=== PATIENT | male | born 1960 | race Hispanic/Latino ===

== ENCOUNTER 2017-12-03 19:23 | Observation (INO) | payer BC ==
[2017-12-03] MEDS ORDERED: NA CHLORIDE 0.9% 1,000 ML ONE (20:20)
[2017-12-03 20:57] LABS: Protime INR 1.08
[2017-12-03 20:58] LABS: Absolute Lymphocytes (CBC) 1.8 K/uL (0.7-4.9); Absolute Monocytes 0.6 K/uL (0.1-1.3); Absolute Neutrophil 5.1 K/uL (1.8-8.0); Basophils % 0.4 % (0-1.3); Hematocrit 44.7 % (39.6-49.0); Lymphocytes % 23.7 % (15.3-44.8); MCH 32.9 pg (27.0-35.0); MCV 93.4 fL (80-100); MPV 9.9 fL (7.6-11.3); Monocytes % 7.2 % (3.3-12.3); RBC Red Blood Cell Count 4.79 M/uL (4.33-5.43)
[2017-12-03 21:14] LABS: ALT/SGPT 41 U/L (12-78); AST/SGOT 26 U/L (15-37); Albumin 3.7 g/dL (3.4-5.0); Alkaline Phosphatase 63 U/L (45-117); BUN Blood Urea Nitrogen 17 mg/dL (7-18); Bicarbonate 27 mmol/L (21-32); Bilirubin Direct 0.1 mg/dL (0-0.2); Bilirubin Total 0.7 mg/dL (0.2-1.0); Glucose Level 122 mg/dL (74-106); Lipase 226 U/L (73-393); Magnesium 2.1 mg/dL (1.8-2.4); NT PRO-BNP 213 pg/mL (<125); Potassium 3.5 mmol/L (3.5-5.1); Sodium Level 141 mmol/L (136-145); Troponin (Emerg Dept Use Only) < 0.02 ng/mL (0.0-0.045)
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
--- NOTE | 2017-12-03 22:16 | RAD REPORT ---
EXAM DESCRIPTION: RAD - Chest Single View - 12/03/2017 8:23 pm CLINICAL HISTORY: Cough and congestion, shortness of breath COMPARISON: August 2013 TECHNIQUE: AP portable chest image was obtained 2015 hours . FINDINGS: Lung volumes are relatively low. No peripheral mass or consolidation. Cardiomegaly is pres ent increased slightly from all ready prominent heart size on comparison study. Vasculature is increa sed slightly. No measurable pleural effusion and no pneumothorax. No acute bony abnormality seen. No acute aortic findings suspected. IMPRESSION: No peripheral mass or consolidation. Cardiomegaly and vascular engorgement are slightly worse than 2014 suggesting mild failure or volume overload.
--- NOTE | 2017-12-03 22:18 | RAD REPORT ---
EXAM DESCRIPTION: - CP - 12/03/2017 9:20 pm CLINICAL HISTORY: Dizziness, syncope COMPARISON: None. TECHNIQUE: Real-time sonographic evaluation of both carotid systems was performed. Moody scale and Do ppler interrogation were performed with waveform tracing bilaterally. FINDINGS: Normal high resistance waveforms are noted in both external carotid arteries. The common c arotid arteries and internal carotid arteries show normal low resistance waveforms. Mild plaquing changes are present in the right carotid bulb. Right-sided velocity values and ratio fa ll within normal range. Elevated left ICA velocity of 110 cm/second obtained with a 1.9 ICA/CCA ratio . Corresponding plaquing changes are not clearly identified. There is some plaquing change present in the bulb and ICA on the left. Antegrade flow seen in both vertebral arteries. Velocity values and ratios were recorded and are retained in the patient's imaging records. IMPRESSION: Elevated velocity and ratio values on the left are present without a definitive correlat e on visual inspection. Left-sided findings are equivocal for hemodynamically significant stenosis. No significant stenosis in the right carotid vasculature.
--- NOTE | 2017-12-03 22:40 | EDPHYS ---
Physician Documentation [facility] Name: Fabian Hamm Jr Age: 57 yrs Sex: Male : 1960 Arrival Date: 12/03/2017 Time: 19:26 Bed 28 Private MD: ED Physician Rashel Johnson HPI: 12/03 20:06 This 57 yrs old Male presents to ER via Ambulatory with complaints of cassia Dizziness. 20:06 The patient presents with dizziness, lightheadedness, feeling off balance. Onset: The cassia symptoms/episode began/occurred 3 day(s) ago. Context: occurred at home. Modifying factors: The symptoms are alleviated by nothing, the symptoms are aggravated by standing up, changing position. Severity of symptoms: At their worst the symptoms were. Historical: - Allergies: 19:48 No Known Allergies; mg2 - Home Meds: 19:48 hydrochlorothiazide 25 mg Oral tab [Active]; lisinopril 20 mg Oral tab [Active]; mg2 ropinirole Oral [Active]; pravastatin 20 mg Oral tab [Active]; - PMHx: 19:48 Hyperlipidemia; Hypertension; restless leg syndrome; mg2 - PSHx: 19:48 None; mg2 - Immunization history:: Flu vaccine is not up to date. - Social history:: Smoking status: Patient/guardian denies using tobacco, Patient uses alcohol, weekly. Patient/guardian denies using street drugs, IV drugs. - Ebola Screening: : No symptoms or risks identified at this time. - Family history:: not pertinent. ROS: 20:07 Constitutional: Negative for fever, chills, and weight loss, Eyes: Negative for injury, cassia pain, redness, and discharge, ENT: Negative for injury, pain, and discharge, Neck: Negative for injury, pain, and swelling, Respiratory: Negative for shortness of breath, cough, wheezing, and pleuritic chest pain, Abdomen/GI: Negative for abdominal pain, nausea, vomiting, diarrhea, and constipation, Back: Negative for injury and pain, : Negative for injury, bleeding, discharge, and swelling, MS/Extremity: Negative for injury and deformity, Skin: Negative for injury, rash, and discoloration, Psych: Negative for depression, anxiety, suicide ideation, homicidal ideation, and hallucinations, Allergy/Immunology: Negative for hives, rash, and allergies, Endocrine: Negative for neck swelling, polydipsia, polyuria, polyphagia, and marked weight changes, Hematologic/Lymphatic: Negative for swollen nodes, abnormal bleeding, and unusual bruising. 20:07 Cardiovascular: Positive for chest pain, with movement, of the right clavicle, anterior aspect of right upper chest and right breast. Exam: 20:07 Constitutional: This is a well developed, well nourished patient who is awake, alert, cassia and in no acute distress. Head/Face: Normocephalic, atraumatic. Eyes: Pupils equal round and reactive to light, extra-ocular motions intact. Lids and lashes normal. Conjunctiva and sclera are non-icteric and not injected. Cornea within normal limits. Periorbital areas with no swelling, redness, or edema. ENT: Nares patent. No nasal discharge, no septal abnormalities noted. Tympanic membranes are normal and external auditory canals are clear. Oropharynx with no redness, swelling, or masses, exudates, or evidence of obstruction, uvula midline. Mucous membranes moist. Neck: Trachea midline, no thyromegaly or masses palpated, and no cervical lymphadenopathy. Supple, full range of motion without nuchal rigidity, or vertebral point tenderness. No Meningismus. Cardiovascular: Regular rate and rhythm with a normal S1 and S2. No gallops, murmurs, or rubs. Normal PMI, no JVD. No pulse deficits. Respiratory: Lungs have equal breath sounds bilaterally, clear to auscultation and percussion. No rales, rhonchi or wheezes noted. No increased work of breathing, no retractions or nasal flaring. Abdomen/GI: Soft, non-tender, with normal bowel sounds. No distension or tympany. No guarding or rebound. No evidence of tenderness throughout. Back: No spinal tenderness. No costovertebral tenderness. Full range of motion. Male : Normal genitalia with no discharge or lesions. Skin: Warm, dry with normal turgor. Normal color with no rashes, no lesions, and no evidence of cellulitis. MS/ Extremity: Pulses equal, no cyanosis. Neurovascular intact. Full, normal range of motion. Neuro: Awake and alert, GCS 15, oriented to person, place, time, and situation. Cranial nerves II-XII grossly intact. Motor strength 5/5 in all extremities. Sensory grossly intact. Cerebellar exam normal. Normal gait. Psych: Awake, alert, with orientation to person, place and time. Behavior, mood, and affect are within normal limits. 20:07 Chest/axilla: Inspection: normal, Palpation: tenderness, that is mild, of the anterior aspect of right upper chest and right breast, Axilla: are normal, no abscess, no cellulitis, no mass, no palpable nodes, no rash. Vital Signs: 19:46 BP 145 / 74; Pulse 66; Resp 18; Temp 98.5(O); Pulse Ox 100% on R/A; Weight 104.33 kg; mg2 Height 5 ft. 1 in. (154.94 cm); Pain 2/10; 22:03 BP 141 / 83; Pulse 59; Resp 18; Pulse Ox 100% on R/A; mg2 22:48 BP 130 / 70; Pulse 57; Resp 18; Pulse Ox 100% on R/A; mg2 23:23 BP 131 / 67; Pulse 52; Resp 18; Pulse Ox 97% on R/A; Pain 2/10; mg2 19:46 Body Mass Index 43.46 (104.33 kg, 154.94 cm) mg2 MDM: 19:54 Patient medically screened. [facility] 20:07 Data reviewed: vital signs, nurses notes, lab test result(s), EKG, radiologic studies, [facility] CT scan, doppler, plain films. 12/03 20:06 Order name: Basic Metabolic Panel; Complete Time: 22:36 [facility] 12/03 20:06 Order name: CBC with Diff; Complete Time: 22:36 [facility] 12/03 20:06 Order name: LFT's; Complete Time: 22:36 [facility] 12/03 20:06 Order name: Magnesium; Complete Time: 22:36 [facility] 12/03 20:06 Order name: NT PRO-BNP; Complete Time: 22:36 [facility] 12/03 20:06 Order name: PT-INR; Complete Time: 22:36 [facility] 12/03 20:06 Order name: Troponin (emerg Dept Use Only); Complete Time: 22:36 [facility] 12/03 20:06 Order name: XRAY Chest (1 view); Complete Time: 22:36 [facility] 12/03 20:06 Order name: Lipase; Complete Time: 22:36 [facility] 12/03 20:06 Order name: CT Traumagram (Head C Spine CAP W Con); Complete Time: 22:36 [facility] 12/03 20:06 Order name: US Carotid Artery Bilateral; Complete Time: 22:36 [facility] 12/03 22:19 Order name: Urine Dipstick--Ancillary (enter results) ms 12/03 22:44 Order name: Echo with Doppler [facility] 12/03 20:06 Order name: EKG; Complete Time: 20:07 [facility] 12/03 20:06 Order name: Cardiac monitoring; Complete Time: 21:38 [facility] 12/03 20:06 Order name: EKG - Nurse/Tech; Complete Time: 21:51 [facility] 12/03 20:06 Order name: IV Saline Lock; Complete Time: 21:38 [facility] 12/03 20:06 Order name: Labs collected and sent; Complete Time: 21:38 [facility] 12/03 20:06 Order name: O2 Per Protocol; Complete Time: 21:38 [facility] 12/03 20:06 Order name: O2 Sat Monitoring; Complete Time: 21:38 [facility] 12/03 20:06 Order name: Urine Dipstick-Ancillary (obtain specimen); Complete Time: 22:18 [facility] 12/03 22:44 Order name: CONS Physician Consult EDNM Administered Medications: 20:29 Drug: NS 0.9% 500 ml Route: IV; Rate: bolus; Site: left wrist; mg2 22:04 Follow up: Response: No adverse reaction; IV Status: Completed infusion mg2 23:46 Follow up: Response: No adverse reaction; IV Status: Completed infusion mg2 20:54 Drug: NS 0.9% 1000 ml Route: IV; Rate: 125 ml/hr; Site: left wrist; mg2 23:46 Follow up: Response: No adverse reaction; IV Status: Completed infusion mg2 22:57 Drug: Aspirin Chewable Tablet 324 mg Route: PO; mg2 23:45 Follow up: Response: No adverse reaction mg2 Disposition: 12/03/17 22:40 Hospitalization ordered by Fred Ramirez for Observation. Preliminary diagnosis are Dizziness and giddiness - left carotid disease, Multiple fractures of ribs, right side - 3rd and 4th. - Bed requested for Telemetry/MedSurg (observation). - Status is Observation. mg2 - Condition is Stable. - Problem is new. - Symptoms have improved. UTI on Admission? No Signatures: Dispatcher [employer] EDNM Liberty Armenta RN RN mw Anderson, Corey, MD MD cha Gardose, Nils, RN RN mg2 Corrections: (The following items were deleted from the chart) 22:40 22:40 Hospitalization Ordered by Fred Ramirez MD for Observation. Preliminary [facility] diagnosis is Dizziness and giddiness; Multiple fractures of ribs, right side - 3rd and 4th. Bed requested for Telemetry/MedSurg (observation). Status is Observation. Condition is Stable. Problem is new. Symptoms have improved. UTI on Admission? No. [facility] :18 22:40 12/03/2017 22:40 Hospitalization Ordered by Fred Ramirez MD for Observation. Preliminary diagnosis is Dizziness and giddiness - left carotid disease; Multiple fractures of ribs, right side - 3rd and 4th. Bed requested for Telemetry/MedSurg (observation). Status is Observation. Condition is Stable. Problem is new. Symptoms have improved. UTI on Admission? No. [facility] 12/04 00:25 12/03 23:18 12/03/2017 22:40 Hospitalization Ordered by Fred Ramirez MD for mg2 Observation. Preliminary diagnosis is Dizziness and giddiness - left carotid disease; Multiple fractures of ribs, right side - 3rd and 4th. Bed requested for Telemetry/MedSurg (observation). Status is Observation. Condition is Stable. Problem is new. Symptoms have improved. UTI on Admission? No. mw
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
[2017-12-03 22:47] LABS: Urine Blood NEGATIVE (NEG); Urine Glucose NEGATIVE (NEG); Urine Protein NEGATIVE (NEG)
[2017-12-03] MEDS ORDERED: ASPIRIN 81 MG CHEWABLE TABLET ONE (22:58)
[2017-12-04] MEDS ORDERED: ONDANSETRON 4 MG/2 ML VIAL IV PRN (00:30)
[2017-12-04] MEDS ORDERED: MECLIZINE HCL 12.5 MG TAB PO PRN (00:30)
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
[2017-12-04] MEDS ORDERED: ROPINIROLE HCL 0.25 MG TAB PO SCH ×2 (01:40→21:00)
[2017-12-04] MEDS: LISINOPRIL 20 MG TAB PO SCH ×2 (01:56→09:00)
[2017-12-04 02:14] VITALS: BMI 43.0
[2017-12-04 05:48] LABS: Absolute Lymphocytes (CBC) 1.9 K/uL (0.7-4.9); Absolute Monocytes 0.5 K/uL (0.1-1.3); Absolute Neutrophil 3.7 K/uL (1.8-8.0); Basophils % 0.4 % (0-1.3); Eosinophils % 5.4 % (0-4.4); Hematocrit 40.8 % (39.6-49.0); Lymphocytes % 28.9 % (15.3-44.8); MCH 33.3 pg (27.0-35.0); MCV 94.2 fL (80-100); MPV 9.4 fL (7.6-11.3); Monocytes % 8.4 % (3.3-12.3); RBC Red Blood Cell Count 4.33 M/uL (4.33-5.43)
[2017-12-04 05:51] LABS: Potassium 3.6 mmol/L (3.5-5.1)
[2017-12-04] MEDS ORDERED: REGADENOSON 0.4 MG/5 ML SYR IV ONE (07:45)
[2017-12-04] MEDS ORDERED: INFLUENZA VACCINE (for 3y+) 0.5 ML DOSE IMVAC ONE (10:00)
--- NOTE | 2017-12-04 10:08 | RAD REPORT ---
EXAM DESCRIPTION: NM - Rest Stress Cardiac Imaging - 12/04/2017 9:47 am CLINICAL HISTORY: Chest pain COMPARISON: None. TECHNIQUE: The patient was administered 10.3 mCi of Tc 99m Sestamibi prior to resting SPECT imaging of the heart. The patient was then administered 32.4 mCi of Tc 99m Sestamibi following exercise or ph armacologic stress. Multiplanar SPECT images were reviewed. FINDINGS: The end diastolic volume is 194 ml, the end systolic volume is 110 ml, and the ejection fr action is 43 %. No stress-induced ischemic changes identifiable. Moderate area of diminished activity along the infer ior wall base to apex could be scarring. This is a common site for diaphragmatic attenuation artifact as well, particularly given the ventricular dilatation. IMPRESSION: No stress-induced ischemic change. Large inferior wall fixed defect from scarring, attenuation artifact or a combination. End-diastolic volume was 194 mL with a 43% EF.
[2017-12-04] MEDS: ENOXAPARIN 40 MG/0.4 ML SQ SCH (10:21)
--- NOTE | 2017-12-04 13:08 | TREADPHA ---
DX: CHEST PAIN Date of Study: 12/04/2017 Ht: 5 2 Wt: 235 lb 3.2 oz Consulting Physician: DR. CARIAS MEDICATIONS: LOVENOX, PRINIVIL, ATIVERT, ZOFRAN, REQUIP HISTORY: 57 YEAR OLD MALE. COMPLAINTS OF CHEST PAIN. MEDICAL HISTORY: HYPERTENSION, HYPERLIPIDEMIA, RESTLESS LEG SYNDROME PHYSICIAL EXAMINATION: RESTING B.P.: 163/90 RESTING H.R.: 50 RESTING EKG: SINUS BRADYCARDIA, RIGHT AXIS DEVIATION. PROTOCOL: LEXISCAN EXERCISE TIME: 3:30 B.P. AT PEAK STRESS: 148/84 IMPRESSION: LEXISCAN INJECTED, CARDIOLITE INJECTED PER PROTOCOL. SEE NUCLEAR MEDICINE REPORT. NO SUPERIOR VENTRICULAR TACHYCARDIA. NO VENTRICULAR TACHYCARDIA. OCCASIONAL PREMATURE VENTRICULAR COMPLEXES THROUGHOUT. DENIED CHEST PAIN ONLY DISCOMFORT.
[2017-12-04] MEDS ORDERED: LORazepam 2 MG/ML VIAL IV ONE (15:07)
--- NOTE | 2017-12-04 15:56 | RAD REPORT ---
EXAM DESCRIPTION: MRI - Brain W/Wo Cont - 12/04/2017 3:47 pm CLINICAL HISTORY: Dizziness COMPARISON: 12/03/[address] TECHNIQUE: Axial, sagittal, and coronal magnetic resonance images of the brain were obtained. 16 cc MultiHance administered intravenously. FINDINGS: Mild to moderate signal is present within periventricular, deep and subcortical white jhony er bilaterally Diffusion-weighted/ADC mapping does not reveal evidence of acute infarction. The ventricles are normal caliber. No abnormal enhancement within the brain is seen. An extra-axial fluid collection is not noted. The sinuses and mastoids are clear. IMPRESSION: Mild to moderate signal is present within periventricular, deep and subcortical white ma tter bilaterally may be secondary to ischemic changes secondary small vessel disease No acute intracranial abnormality is seen
--- NOTE | 2017-12-04 16:24 | PN ---
Date of Progress Note: 12/04/2017 Subjective: The patient seen and examined. Chart reviewed and case discussed with RN. The patient does complain of some dizziness with bending forward, going for a stress test today. Review of Systems: Negative except as above. Medications: List reviewed. Physical Examination: Vital Signs: Temperature 97, heart rate 48, blood pressure 150/88, respirations 16, O2 98% on room air. General: Awake, alert, oriented x3. In mild distress due to pain. Obese, morbidly obese male. CV: S1, S2. Regular rate and rhythm. Peripheral pulses present. No murmurs. Respiratory: Moving air well bilaterally. No wheezing or stridor. Gastrointestinal: Abdomen is soft, nontender, nondistended. Positive bowel sounds. Extremities: No clubbing, cyanosis, or edema. Neuro : Cranial nerves 2 through 12 intact grossly. No focal neurological deficit. Speech is normal. Strength is symmetric bilateral upper and lower extremities. Musculoskeletal: Tenderness to palpation of the right shoulder posterior aspect. Somewhat decreased range of motion due to pain on the right shoulder. Laboratory Data: Sodium 140, potassium 3.6, chloride 106, CO2 28, BUN 17, creatinine 0.9, glucose 149, calcium 8.3. WBC 6.5, H and H 14.4 and 40.8, platelets 145. Assessment And Plan: A 57-year-old male with: 1. Dizziness. The patient does have carotid artery stenosis, which may be etiology. We will check orthostatic vital signs and continue remote cardiac telemetry. 2. Morbid obesity, counseled. 3. Essential hypertension. Continue home medications as appropriate. We will hold beta-liz due to bradycardia. 4. Bradycardia. Hold metoprolol. 5. Left carotid artery disease. Ultrasound shows stenosis. Consider CT angio neck. Neurology has been consulted. We will discuss with Cardiology. 6. Nondisplaced right rib fractures, 3rd and 4th rib. 7. Diffuse fatty liver disease. 8. Cervical spine degenerative changes with foraminal stenosis, C6-7. 9. Gastrointestinal and deep venous thrombosis prophylaxis addressed. /KATE Voice ID: [id number] Report ID: [id number] ADE
[2017-12-04] MEDS ORDERED: METOPROLOL TAR 50 MG TAB PO SCH (21:00)
[2017-12-04] MEDS ORDERED: ATORVASTATIN 10 MG TAB PO SCH (21:00)
[2017-12-04] MEDS ORDERED: HYDRALAZINE HCL 20 MG/ML VIAL IV PRN (21:51)
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
--- NOTE | 2017-12-05 06:04 | CON ---
Date of Consultation: 12/04/2017 Reason For Consultation: Left carotid stenosis. History Of Present Illness: Mr. Hamm is 57, has a history of hypertension, dyslipidemia, restless legs syndrome. He also has a history of hypothyroidism. He came in with dizzy spells, sharp chest pain on the right side of his chest. Carotid Doppler showed no focal stenosis that is obvious, but e levated velocity on the left size. I think this is probably more secondary to tortuosity. The patie nt is not having TIA symptoms. He is not having PND, orthopnea, pedal edema, nausea, vomiting, or pa lpitations. Allergies: NONE. Review of Systems: Negative. Social History: Negative. Family History: Negative. Medications: Medications at home include Synthroid, lisinopril, hydrochlorothiazide, metoprolol, and Pravachol. Physical Examination: Vital Signs: Stable. He was afebrile. HEENT: Negative. Neck: Supple with no bruit, lymphadenopathy, JVD, or thyromegaly. Chest: Clear to auscultation and percussion. Cardiac: Exam revealed a regular rhythm and rate. No murmurs, gallops, or rubs. Abdomen: Benign. Extremities: Revealed no clubbing, cyanosis, or edema. Diagnostic Data: As stated earlier. Also, he has C6-7 spinal stenosis. Impression And Plan: Dizzy spells and balance issues, may have to do with orthostatic hypotension. I doubt that the carotid stenosis is causing his issue. There is only increased velocity but no foca l visual stenosis. The C6-C7 stenosis may have some to do with his symptoms as well. I do not think he needs a carotid angiogram at this point. There is an echocardiogram and a Lexiscan pending to ru le out other cardiac issues. If these are normal, he can go home. He will need to have a carotid Do ppler on a yearly basis to follow up on his carotid stenosis. The blood pressure and dyslipidemia ar e well controlled. NB/MODL Voice ID: [id number] Report ID: [id number]
[2017-12-05] MEDS ORDERED: LEVOTHYROXINE SOD 0.025 MG TAB PO SCH (06:30)
--- NOTE | 2017-12-05 06:54 | EKG ---
Test Date: 2017-12-03 Test Time: 21:46:13 Mortgage Closing Clerk: MG MEASUREMENT RESULTS: Intervals: Rate: 49 [place]: 166 QRSD: 110 QT: 406 QTc: 366 [place]: P: 31 [place]: 166 QRS: 171 T: 0 INTERPRETIVE STATEMENTS: Marked sinus bradycardia Right axis deviation Anterior infarct, age undetermined Abnormal ECG Compared to ECG 02/14/2012 10:41:19 Right-axis deviation now present Myocardial infarct finding now present Electronically Signed On 12-05-17 06:49:37 CDT by Hans Guillory
--- NOTE | 2017-12-05 08:08 | ECHO ---
HEIGHT: 5 ft 2 in WEIGHT: 235 lb 3.2 oz DATE OF STUDY: 12/04/[address]: Rashel Johnson MD 2-DIMENSIONAL: YES M.MODE: YES DOPPLER: YES COLOR FLOW: YES TDS: PORTABLE: DEFINITY: BUBBLE STUDY: DIAGNOSIS: DIZZINESS, CHEST PAIN CARDIAC HISTORY: CATHERIZATION: NO SURGERY: NO PROSTHETIC VALVE: NO PACEMAKER: NO MEASUREMENTS (cm) DIASTOLIC (NORMALS) SYSTOLIC (NORMALS) IVSd 1.2 (0.6-1.2) LA Diam 4.0 (1.9-4.0) LVEF 62% LVIDd 5.8 (3.5-5.7) LVIDs 3.8 (2.0-3.5) %FS 34% LVPWd 1.3 (0.6-1.2) Ao Diam 3.2 (2.0-3.7) 2 DIMENSIONAL ASSESSMENT: RIGHT ATRIUM: NORMAL LEFT ATRIUM: NORMAL RIGHT VENTRICLE: NORMAL LEFT VENTRICLE: NORMAL TRICUSPID VALVE: NORMAL MITRAL VALVE: NORMAL PULMONIC VALVE: NORMAL AORTIC VALVE: NORMAL PERICARDIAL EFFUSION: NONE AORTIC ROOT: NORMAL LEFT VENTRICULAR WALL MOTION: NORMAL DOPPLER/COLOR FLOW: MILD TRICUSPID REGURGITATION. COMMENTS: MILD TRICUSPID REGURGITATION. NORMAL LEFT VENTRICULAR SIZE AND FUNCTION. NO WALL MOTION ABNORMALITY. NO EFFUSION. TECHNOLOGIST: KELLEY CHU
[2017-12-05] MEDS: LISINOPRIL 20 MG TAB PO SCH (09:28)
[2017-12-05] MEDS: ENOXAPARIN 40 MG/0.4 ML SQ SCH (09:31)
[2017-12-05 09:32] VITALS: BP 156/87
[2017-12-05 10:54] VITALS: TEMP 97.4
[2017-12-05 11:29] VITALS: O2SAT 98
--- NOTE | 2017-12-06 03:25 | DS ---
Date of Discharge: 12/05/2017 Consultants: Include Dr. Guillory with Cardiology, Dr. Spicer with Neurology. Procedures: Cardiac stress test on 12/04/2017, negative for any stress-induced ischemia. Admitting Diagnoses: 1.Dizziness. 2.Morbid obesity. 3.Hypertension. Discharge Diagnoses: 1.Dizziness likely due to benign positional vertigo. 2.Morbid obesity, BMI of 43. 3.Essential hypertension. 4.Bradycardia. 5.Left carotid disease. 6.Nondisplaced right rib fractures, third and fourth rib. 7.Diffuse fatty liver disease. 8.Cervical spine degenerative changes C6 through 7. Hospital Course: The patient is a 57-year-old male who came in with dizziness and the patient was fo und to have nondisplaced right third and fourth rib fractures. CT head, cervical, chest, spine, abdo men, and pelvis did not show any acute abnormalities. Carotid ultrasound did show possible left ICA obstruction. The patient was seen by Cardiology and Neurology. The patient had an MRI of the brain done which did not show any acute CVA, was thought to have dizziness secondary to benign positional v ertigo. Mayela maneuver was taught. The patient also had an exercise stress and nuclear stress test which did not show any stress-induced ischemia. The patient will need repeat carotid ultrasound in 6 months to 1 year. Cardiology felt that this was not stenosis, but more was tortuosity. Followup: With primary care physician in 2 to 3 days. Follow up with neurologist, Dr. Spicer in 2 weeks. Follow up with chef saucier, Dr. Guillory in 2 weeks. Return to ER for worsening condition. Recommended to have bariatric surgery for weight loss. Diet: Heart healthy, calorie restricted diet. Activity: As tolerated. Medications: As per medication reconciliation list. Physical Examination: General: Awake, alert, oriented, no acute distress. CV: S1, S2. No murmurs. Respiratory: Moving air well bilaterally. Abdomen: Soft, nontender, nondistended. Positive bowel sounds. Extremities: No clubbing, cyanosis, edema. Neuro: Nonfocal. SA/MODL Voice ID: [id number] Report ID: [id number]
== END 2017-12-05 10:33 | disposition home or self-care (01) ==
LOC: ER 19:23 → ERHOLD 22:41 → 2ND 23:55
PROVIDERS: ADMIT Internal Medicine; ATTEND Internal Medicine
DX: R42 Dizziness and giddiness (principal); S22.41XA Multiple fractures of ribs, right side, initial encounter for closed fracture; V19.3XXA Pedal cyclist (driver) (passenger) injured in unspecified nontraffic accident, initial encounter; Y93.55 Activity, bike riding; Y92.9 Unspecified place or not applicable; E66.01 Morbid (severe) obesity due to excess calories; Z68.41 Body mass index [BMI] 40.0-44.9, adult; I10 Essential (primary) hypertension; R00.1 Bradycardia, unspecified; I77.89 Other specified disorders of arteries and arterioles; Z23 Encounter for immunization; M48.02 Spinal stenosis, cervical region; K76.0 Fatty (change of) liver, not elsewhere classified
CPT/HCPCS: 36415; 70450; 70553; 71045; 71260; 72125; 74177; 78452; 80048; 80076; 81003; 83690; 83735; 83880; 84484; 85025; 85610; 93005; 93017; 93306; 93880; 96360; 96361; 99285; A9500; A9577; G0008; G0378; J0360; J1650; J2785; J7030; Q2035; Q9967

== ENCOUNTER 2020-01-23 14:48 | Emergency (ER) | payer BC, SELFPAY ==
[2020-01-23] MEDS ORDERED: MORPHINE 4 MG/ML SYR ONE (18:01)
[2020-01-23] MEDS ORDERED: KETOROLAC 30 MG/ML INJ ONE (18:02)
[2020-01-23] MEDS ORDERED: DIAZEPAM 10 MG/2 ML INJ SYRINGE ONE (18:02)
--- NOTE | 2020-01-23 18:42 | EDPHYS ---
Physician Documentation [facility] Name: Fabian Hamm Jr Age: 59 yrs Sex: Male : 1960 Arrival Date: 01/23/2020 Time: 14:51 Bed 23 Private MD: ED Physician Josiah Ward HPI: 01/22 17:35 This 59 yrs old Male presents to ER via Wheelchair with complaints of Back cp Pain. 17:35 The patient presents with pain that is acute. The symptoms are located in the low back. cp 17:35 Onset: The symptoms/episode began/occurred 4 day(s) ago. cp 17:35 The pain does not radiate. Associated signs and symptoms: Pertinent negatives: cp abdominal pain, dysuria, fever, incontinence, numbness, tingling, weakness. The problem was sustained pain started after pulling tarp. Severity of symptoms: in the emergency department the symptoms are actually worse, moderately. Historical: - Allergies: 15:37 No Known Allergies; ca1 - PMHx: 15:37 Hyperlipidemia; Hypertension; restless leg syndrome; Diabetes - NIDDM; ca1 - PSHx: 15:37 None; ca1 - Immunization history:: Adult Immunizations up to date, Flu vaccine is not up to date. - Social history:: Smoking status: Patient denies any tobacco usage or history of. ROS: 17:40 Constitutional: Negative for body aches, chills, fever, poor PO intake. cp 17:40 Eyes: Negative for injury, pain, redness, and discharge. cp 17:40 ENT: Negative for ear pain, sore throat, difficulty swallowing, difficulty handling secretions. 17:40 Cardiovascular: Negative for chest pain, palpitations. 17:40 Respiratory: Negative for cough, shortness of breath, wheezing. 17:40 Abdomen/GI: Negative for abdominal pain, nausea, vomiting, and diarrhea, constipation, bowel incontinence. 17:40 Back: Positive for pain at rest, pain with movement, of the lumbar area and left low back. 17:40 : Negative for urinary symptoms, difficulty urinating, bladder incontinence, testicular pain 17:40 Skin: Negative for rash. 17:40 Neuro: Negative for dizziness, numbness, weakness. 17:40 All other systems are negative. Exam: 17:45 Constitutional: The patient appears in no acute distress, alert, awake, non-toxic, well cp developed, well nourished, uncomfortable. 17:45 Head/Face: Normocephalic, atraumatic. cp 17:45 Cardiovascular: Rate: normal. 17:45 Respiratory: the patient does not display signs of respiratory distress, Respirations: normal, no use of accessory muscles, no retractions, labored breathing, is not present. 17:45 Abdomen/GI: Inspection: abdomen appears normal, Bowel sounds: active, all quadrants, Palpation: abdomen is soft and non-tender, in all quadrants. 17:45 Back: pain, that is moderate, of the left low back, ROM is painful, with all movement, Straight leg raises: of both lower extremities does not illicit pain. 17:45 Skin: no rash present. 17:45 Neuro: Motor: moves all fours, strength is normal, Sensation: is normal, Deep tendon reflexes are 2+ (normal) in the right patellar, right Achilles, left patellar and left Achilles. Vital Signs: 15:34 BP 155 / 92; Pulse 68; Resp 16 S; Temp 97.4(TE); Pulse Ox 99% on R/A; Weight 110.22 kg ca1 (R); Height 5 ft. 1 in. (154.94 cm) (R); Pain 9/10; 15:34 Body Mass Index 45.91 (110.22 kg, 154.94 cm) ca1 MDM: 17:30 Patient medically screened. cp 18:05 Differential diagnosis: ruptured disc, Ureterolithiasis sciatica, cauda equina, spinal cp stenosis. 18:40 Data reviewed: vital signs, nurses notes, radiologic studies, plain films. cp 18:40 Test interpretation: by ED physician or midlevel provider: xrays of lumbar spine cp negative for acute findings. Counseling: I had a detailed discussion with the patient and/or guardian regarding: the historical points, exam findings, and any diagnostic results supporting the discharge/admit diagnosis, radiology results, the need for outpatient follow up, a family practitioner, to return to the emergency department if symptoms worsen or persist or if there are any questions or concerns that arise at home. Response to treatment: the patient's symptoms have markedly improved after treatment, and as a result, I will discharge patient. 18:40 ED course: VSS. Pain markedly improved. Will discharge to home for continued monitoring.cp 01/22 17:31 Order name: XRAY Lumbar Spine (3 Views); Complete Time: 19:03 cp 01/22 19:03 Interpretation: Report reviewed. cp Administered Medications: 17:55 Drug: morphine 4 mg Route: IM; Site: left ventrogluteal; 19:02 Follow up: Response: No adverse reaction; Pain is decreased 17:55 Drug: Diazepam 5 mg Route: IM; Site: left ventrogluteal; 19:02 Follow up: Response: No adverse reaction; Pain is decreased 17:55 Drug: TORadol 60 mg Route: IM; Site: left ventrogluteal; 19:02 Follow up: Response: No adverse reaction; Pain is decreased Disposition: 01/23 09:32 Co-signature as Attending Physician, Josiah Ward MD. rn Disposition: 01/23/20 18:41 Discharged to Home. Impression: Low back pain. - Condition is Stable. - Discharge Instructions: Back Pain, Adult, Back Exercises. - Prescriptions for Baclofen 10 mg Oral Tablet - take 1 tablet by ORAL route 3 times per day; 20 tablet. Medrol (Evin) 4 mg Oral Tablets, Dose Pack - take 1 tablet by ORAL route as directed - follow package instructions; 1 packet. Lidoderm 5 % Topical adhesive patch,medicated - apply 1 patch by TRANSDERMAL route once daily; 1 box. - Medication Reconciliation Form, Thank You Letter, Antibiotic Education, Prescription Opioid Use form. - Follow up: Private Physician; When: 1 - 2 days; Reason: Recheck today's complaints. - Problem is new. - Symptoms have improved. Signatures: Dispatcher [employer] EDJosiah Grover MD MD rn Page, Corey, PA PA Marcy Turk RN LANDRY [facility] Martha Patel RN RN Corrections: (The following items were deleted from the chart) 01/22 19:03 18:41 01/23/2020 18:41 Discharged to Home. Impression: Low back pain. Condition is ah Stable. Forms are Medication Reconciliation Form, Thank You Letter, Antibiotic Education, Prescription Opioid Use. Follow up: Private Physician; When: 1 - 2 days; Reason: Recheck today's complaints. Problem is new. Symptoms have improved. cp
--- NOTE | 2020-01-23 18:42 | ER ---
Nurse's Notes [facility] Name: Fabian Hamm Jr Age: 59 yrs Sex: Male : 1960 Arrival Date: 01/23/2020 Time: 14:51 Bed 23 Private MD: Diagnosis: Low back pain Presentation: 01/22 15:34 Chief complaint: Patient states: You pulled a tarp on Friday, the next I can't move ca1 no more and have been hurting since then. Reports Lower back pain across, more on the L side. Coronavirus screen: Client denies travel out of the [place] in the last 14 days. At this time, the client does not indicate any symptoms associated with coronavirus-19. Ebola Screen: Patient negative for fever greater than or equal to 101.5 degrees Fahrenheit, and additional compatible Ebola Virus Disease symptoms Patient denies exposure to infectious person. Patient denies travel to an Ebola-affected area in the 21 days before illness onset. No symptoms or risks identified at this time. Initial Sepsis Screen: Does the patient meet any 2 criteria? No. Patient's initial sepsis screen is negative. Does the patient have a suspected source of infection? No. Patient's initial sepsis screen is negative. Risk Assessment: Do you want to hurt yourself or someone else? Patient reports no desire to harm self or others. Onset of symptoms was January 23, 2020. 15:34 Method Of Arrival: Wheelchair ca1 15:34 Acuity: ELIZABETH 4 ca1 Historical: - Allergies: 15:37 No Known Allergies; ca1 - PMHx: 15:37 Hyperlipidemia; Hypertension; restless leg syndrome; Diabetes - NIDDM; ca1 - PSHx: 15:37 None; ca1 - Immunization history:: Adult Immunizations up to date, Flu vaccine is not up to date. - Social history:: Smoking status: Patient denies any tobacco usage or history of. Screenin:02 Abuse screen: Denies threats or abuse. Nutritional screening: No deficits noted. Tuberculosis screening: No symptoms or risk factors identified. Fall Risk None identified. Assessment: 17:24 Reassessment: Provider in room at this time. 17:35 General: Appears in no apparent distress. Behavior is calm, cooperative, appropriate ah for age. Pain: Complains of pain in lumbar area, low back area, left low back and right low back Pain currently is 8 out of 10 on a pain scale. Quality of pain is described as aching, Pain began 2-3 days ago. Is intermittent, Aggravated by increased activity, repositioning. Neuro: Level of Consciousness is awake, alert, obeys commands, Oriented to person, place, time, situation, Appropriate for age. Cardiovascular: Denies Heart tones S1 S2 present. Respiratory: Airway is patent. GI: Abdomen is. 18:10 Reassessment: Pt to radiology via WC for xrays. Vital Signs: 15:34 BP 155 / 92; Pulse 68; Resp 16 S; Temp 97.4(TE); Pulse Ox 99% on R/A; Weight 110.22 kg ca1 (R); Height 5 ft. 1 in. (154.94 cm) (R); Pain 9/10; 15:34 Body Mass Index 45.91 (110.22 kg, 154.94 cm) ca1 ED Course: 14:51 Patient arrived in ED. ds1 15:37 Triage completed. ca1 15:37 Arm band placed on right wrist. ca1 17:16 Rashel Díaz PA is PHCP. cp 17:16 Josiah Ward MD is Attending Physician. cp 17:23 Martha Patel, RN is Primary Nurse. ah 18:14 XRAY Lumbar Spine (3 Views) In Process Unspecified. EDMS 19:02 Patient has correct armband on for positive identification. Bed in low position. Call light in reach. Side rails up X 1. 19:02 No provider procedures requiring assistance completed. Patient did not have IV access during this emergency room visit. Administered Medications: 17:55 Drug: morphine 4 mg Route: IM; Site: left ventrogluteal; 19:02 Follow up: Response: No adverse reaction; Pain is decreased 17:55 Drug: Diazepam 5 mg Route: IM; Site: left ventrogluteal; 19:02 Follow up: Response: No adverse reaction; Pain is decreased 17:55 Drug: TORadol 60 mg Route: IM; Site: left ventrogluteal; 19:02 Follow up: Response: No adverse reaction; Pain is decreased Outcome: 18:41 Discharge ordered by . cp 19:01 Discharged to home ambulatory. 19:01 Condition: good 19:01 Discharge instructions given to patient, Instructed on discharge instructions, follow up and referral plans. Demonstrated understanding of instructions, follow-up care, medications, Prescriptions given X 4. 19:03 Patient left the ED. Signatures: Dispatcher [employer] EDAZ AdonayVicki ds1 Rashel Díaz PA PA cp Acob, Cheryl, RN RN [facility] Martha Patel RN RN
--- NOTE | 2020-01-23 18:50 | RAD REPORT ---
EXAM DESCRIPTION: RAD - Lumbar Spine 3 Views - 01/23/2020 6:16 pm CLINICAL HISTORY: PAIN Radiculopathy COMPARISON: No comparisons FINDINGS: Vertebral body heights appear maintained. No compression fracture noted. Disc thinning is present with minimal vacuum disc degeneration and small posterior osteophytes at L5-S1. Minimal anter olisthesis also noted at this level. Moderate facet hypertrophy is present at the lower lumbar levels . IMPRESSION: [id number] L5-S1 spondylosis.
[2020-01-27 12:52] VITALS: BP 155/92; TEMP 97.4; O2SAT 99
== END 2020-01-23 19:03 | disposition home or self-care (01) ==
LOC: ER 14:48
DX: M54.5 Low back pain (principal); I10 Essential (primary) hypertension
CPT/HCPCS: 72100; 96372; 99283; J3360

== ENCOUNTER 2020-09-05 00:14 | Inpatient (IN) | payer SELFPAY ==
[2020-09-05] MEDS ORDERED: METHYLPREDNISOLONE 125 MG INJ ONE ×2 (00:46→12:31)
[2020-09-05] MEDS ORDERED: IPRATROPIUM BROM 0.5MG/2.5ML ONE ×3 (00:47→13:55)
[2020-09-05] MEDS ORDERED: ALBUTEROL 2.5 MG/3 ML NEB SOL ONE ×3 (00:47→13:55)
[2020-09-05 01:16] LABS: Absolute Lymphocytes (CBC) 1.4 K/uL (0.7-4.9); Basophils % 0.5 % (0-1.3); Hematocrit 39.6 % (39.6-49.0); Lymphocytes % 24.7 % (15.3-44.8); MPV 9.2 fL (7.6-11.3); Protime INR 1.05; RBC Red Blood Cell Count 4.26 M/uL (4.33-5.43)
[2020-09-05] MEDS ORDERED: FUROSEMIDE 40 MG/4 ML VIAL ONE (01:37)
[2020-09-05 02:14] LABS: ALT/SGPT 51 U/L (12-78); AST/SGOT 35 U/L (15-37); Albumin 3.9 g/dL (3.4-5.0); Alkaline Phosphatase 66 U/L (45-117); BUN Blood Urea Nitrogen 11 mg/dL (7-18); Bicarbonate 27 mmol/L (21-32); Bilirubin Direct 0.2 mg/dL (0-0.2); Bilirubin Total 0.7 mg/dL (0.2-1.0); Glucose Level 101 mg/dL (74-106); Magnesium 1.8 mg/dL (1.8-2.4); NT PRO-BNP 164 pg/mL (<125); Potassium 3.8 mmol/L (3.5-5.1); Protein, Total 6.5 g/dL (6.4-8.2); Sodium Level 142 mmol/L (136-145); Troponin (Emerg Dept Use Only) 0.02 ng/mL (0.0-0.045)
[2020-09-05] MEDS ORDERED: LEVALBUTEROL 1.25 MG/3 ML NEB ONE (02:15)
--- NOTE | 2020-09-05 03:35 | ER ---
Nurse's Notes [facility] Name: Fabian Hamm Jr Age: 60 yrs Sex: Male : 1960 Arrival Date: 09/05/2020 Time: 00:18 Bed 25 Private MD: Diagnosis: Unspecified asthma with (acute) exacerbation;Dyspnea;Hypomagnesemia Presentation: 09/05 00:52 Chief complaint: Patient states: lloyd x1 day. Coronavirus screen: Client denies travel ca1 out of the [place] in the last 14 days. At this time, the client does not indicate any symptoms associated with coronavirus-19. Ebola Screen: Patient negative for fever greater than or equal to 101.5 degrees Fahrenheit, and additional compatible Ebola Virus Disease symptoms Patient denies exposure to infectious person. Patient denies travel to an Ebola-affected area in the 21 days before illness onset. No symptoms or risks identified at this time. Initial Sepsis Screen: Does the patient meet any 2 criteria? No. Patient's initial sepsis screen is negative. Does the patient have a suspected source of infection? No. Patient's initial sepsis screen is negative. Risk Assessment: Do you want to hurt yourself or someone else? Patient reports no desire to harm self or others. Onset of symptoms was September 04, 2020. 00:52 Method Of Arrival: Ambulatory ca1 00:52 Acuity: ELIZABETH 3 ca1 Triage Assessment: 00:54 General: Appears in no apparent distress. Behavior is calm, cooperative. Pain: Denies ca1 pain. Neuro: No deficits noted. Cardiovascular: No deficits noted. Respiratory: Reports shortness of breath at rest Onset: The symptoms/episode began/occurred gradually, the patient has moderate shortness of breath. 00:55 Respiratory: Airway is patent Breath sounds with wheezes bilaterally. ca1 Historical: - Allergies: 00:53 No Known Allergies; ca1 - Home Meds: 00:54 hydrochlorothiazide 25 mg Oral tab [Active]; lisinopril 20 mg Oral tab [Active]; ca1 pravastatin 20 mg Oral tab [Active]; ropinirole Oral [Active]; - PMHx: 00:54 Diabetes - NIDDM; Hyperlipidemia; Hypertension; restless leg syndrome; ca1 - Immunization history:: Adult Immunizations up to date. - Social history:: Smoking status: unknown. Screenin:56 Abuse screen: Denies threats or abuse. Denies injuries from another. Nutritional ca1 screening: No deficits noted. Tuberculosis screening: No symptoms or risk factors identified. Fall Risk None identified. Assessment: 00:55 General: Appears in no apparent distress. Pain: Denies pain. Neuro: No deficits noted. ca1 Cardiovascular: Rhythm is regular. Respiratory: Respiratory effort is even. 02:46 Reassessment: Patient and/or family updated on plan of care and expected duration. Pain ca1 level reassessed. Vital Signs: 00:52 BP 126 / 81; Pulse 68; Resp 20; Temp 97.7; Pulse Ox 94% on R/A; Weight 113.4 kg; Height ca1 5 ft. 1 in. (154.94 cm); 02:46 BP 118 / 69; Pulse 75; Resp 20; Pulse Ox 95% on R/A; ca1 00:52 Body Mass Index 47.24 (113.40 kg, 154.94 cm) ca1 ED Course: 00:18 Patient arrived in ED. es 00:23 Rashel Díaz PA is PHCP. cp 00:23 Rashel Johnson MD is Attending Physician. cp 00:53 Triage completed. ca1 00:55 Arm band placed on right wrist. ca1 00:56 XRAY Chest (1 view) In Process Unspecified. EDMS 00:56 Patient has correct armband on for positive identification. ca1 00:56 No provider procedures requiring assistance completed. Inserted saline lock: 20 gauge ca1 in right antecubital area, using aseptic technique. 03:33 Pedro Ward MD is Hospitalizing Provider. cp Administered Medications: 00:40 Drug: SOLU-Medrol (methylPrednisoLONE) 125 mg Route: IVP; Site: right antecubital; ca1 01:16 Drug: Lasix (furosemide) 40 mg Route: IVP; Site: right antecubital; ca1 01:22 Drug: Albuterol - atroVENT (ipratropium) (3:1) (2.5 mg - 0.5 mg) 3 ml Route: Nebulizer; ca1 02:16 Drug: Xopenex (levalbuterol) (3) 1.25 mg Route: Inhalation; ca1 03:39 Drug: Magnesium Sulfate 1 grams Route: IVPB; Infused Over: 1 hrs; Site: right ak2 antecubital; Outcome: 03:34 Decision to Hospitalize by Provider. cp 17:28 Patient left the ED. aa5 Signatures: Dispatcher [employer] Carley Chiu Audri RN RN aa5 Rashel Díaz PA PA cp Acob, Cheryl RN RN ca1 Leoncio Howard
--- NOTE | 2020-09-05 03:35 | EDPHYS ---
Physician Documentation [facility] Name: Fabian Hamm Jr Age: 60 yrs Sex: Male : 1960 Arrival Date: 09/05/2020 Time: 00:18 Bed 25 Private MD: ED Physician Rashel Johnson HPI: 09/05 00:45 This 60 yrs old Male presents to ER via Ambulatory with complaints of Asthma cp Exacerbation, Breathing Difficulty. 00:45 The patient has shortness of breath at rest. cp 00:45 Onset: The symptoms/episode began/occurred gradually, and became worse last night. cp Duration: The symptoms are continuous, and are steadily getting worse. Associated signs and symptoms: Pertinent positives: non-productive cough, Pertinent negatives: chest pain, diaphoresis, fever, vomiting. Severity of symptoms: in the emergency department the symptoms are unchanged despite home interventions. Historical: - Allergies: 00:53 No Known Allergies; ca1 - Home Meds: 00:54 hydrochlorothiazide 25 mg Oral tab [Active]; lisinopril 20 mg Oral tab [Active]; ca1 pravastatin 20 mg Oral tab [Active]; ropinirole Oral [Active]; - PMHx: 00:54 Diabetes - NIDDM; Hyperlipidemia; Hypertension; restless leg syndrome; ca1 - Immunization history:: Adult Immunizations up to date. - Social history:: Smoking status: unknown. ROS: 00:50 Constitutional: Negative for body aches, chills, fever, poor PO intake. cp 00:50 Eyes: Negative for injury, pain, redness, and discharge. cp 00:50 ENT: Negative for ear pain, sore throat, difficulty swallowing, difficulty handling secretions. 00:50 Cardiovascular: Positive for chest pain, Negative for palpitations. 00:50 Respiratory: Positive for cough, shortness of breath, wheezing. 00:50 Abdomen/GI: Negative for abdominal pain, nausea, vomiting, and diarrhea. 00:50 : Negative for urinary symptoms. 00:50 Neuro: Negative for altered mental status, headache, syncope, weakness. 00:50 All other systems are negative. Exam: 00:38 ECG was reviewed by the Attending Physician. cp 00:55 Constitutional: The patient appears alert, awake, non-diaphoretic, non-toxic, well cp developed, well nourished, obese, in obvious distress, moderately distressed. 00:55 Head/Face: Normocephalic, atraumatic. cp 00:55 Eyes: Periorbital structures: appear normal, Conjunctiva: normal, no exudate, no injection, Sclera: no appreciated abnormality, Lids and lashes: appear normal, bilaterally. 00:55 ENT: External ear(s): are unremarkable, Nose: is normal, Mouth: Lips: moist, Oral mucosa: moist, Posterior pharynx: Airway: no evidence of obstruction, patent, Tonsils: are normal in appearance, swelling, is not appreciated, erythema, is not appreciated, exudate, is not appreciated. 00:55 Neck: ROM/movement: is normal, is supple, without pain, no range of motions limitations, no meningismus. 00:55 Chest/axilla: Inspection: normal, Palpation: is normal, no crepitus, no tenderness. 00:55 Cardiovascular: Rate: normal, Rhythm: regular, Edema: is not appreciated, JVD: is not appreciated. 00:55 Respiratory: moderate respiratory distress is noted, Respirations: labored breathing, that is moderate, shallow respirations, that is moderate, Breath sounds: decreased breath sounds, that are moderate, throughout, stridor, is not appreciated, wheezing: that is mild, is heard diffusely. 00:55 Abdomen/GI: Inspection: abdomen appears normal, Palpation: abdomen is soft and non-tender, in all quadrants. 00:55 Back: pain, is absent, ROM is normal. 00:55 Skin: no rash present. 00:55 Neuro: Orientation: to person, place \\T\\ time. Mentation: is normal, Motor: moves all fours, strength is normal. Vital Signs: 00:52 BP 126 / 81; Pulse 68; Resp 20; Temp 97.7; Pulse Ox 94% on R/A; Weight 113.4 kg; Height ca1 5 ft. 1 in. (154.94 cm); 02:46 BP 118 / 69; Pulse 75; Resp 20; Pulse Ox 95% on R/A; ca1 00:52 Body Mass Index 47.24 (113.40 kg, 154.94 cm) ca1 MDM: 00:36 Patient medically screened. cassia 01:00 Differential diagnosis: CHF exacerbation, Chronic Obstructive Pulmonary Disease cp pneumonia, Pneumothorax pulmonary edema, Pulmonary Embolism Sepsis Unstable Angina. 03:30 Data reviewed: vital signs, nurses notes, lab test result(s), EKG, radiologic studies, cp plain films. 03:30 Antibiotic administration: Not indicated, the patient does not have an appreciated cp infiltrate. Test interpretation: by ED physician or midlevel provider: ECG, plain radiologic studies. Counseling: I had a detailed discussion with the patient and/or guardian regarding: the historical points, exam findings, and any diagnostic results supporting the discharge/admit diagnosis, lab results, radiology results, the need for further work-up and treatment in the hospital. Response to treatment: the patient's symptoms have mildly improved after treatment. Physician consultation: Tahir ISABEL was contacted at 03:30, regarding admission, to the telemetry unit. patient's condition, and will see patient in ED, shortly. 09/05 00:38 Order name: COVID-19 : Document "Date of Symptom Onset" if Symptomatic. cp 09/05 00:38 Order name: Basic Metabolic Panel; Complete Time: 02:33 cp 09/05 02:33 Interpretation: Normal except: CL 111; CA 8.3. cp 09/05 00:38 Order name: CBC with Diff; Complete Time: 01:19 cp 09/05 02:34 Interpretation: Normal except: RBC 4.26; HGB 13.5; PLT 137; EOSINOPHIL % 8.6. cp 09/05 00:38 Order name: LFT's; Complete Time: 02:33 cp 09/05 02:40 Interpretation: Reviewed. cp 09/05 00:38 Order name: Magnesium; Complete Time: 02:33 cp 09/05 02:34 Interpretation: MG 1.8; Reviewed. cp 09/05 00:38 Order name: NT PRO-BNP; Complete Time: 02:33 cp 09/05 02:33 Interpretation: Abnormal: NT PRO-BNP 164. cp 09/05 00:38 Order name: PT-INR; Complete Time: 01: cp 09/05 00:38 Order name: Troponin (emerg Dept Use Only); Complete Time: 02:33 cp 09/05 02:33 Interpretation: Within normal limits: TROPED 0.02. cp 09/05 00:38 Order name: D-Dimer; Complete Time: 01:19 cp 09/05 02:40 Interpretation: Within normal limits: D-DIMER 418. cp 09/05 02:04 Order name: SARS-COV-2 RT PCR; Complete Time: 02:33 EDMS 09/05 02:40 Interpretation: Results reviewed. 09/05 07:51 Order name: Glucose, Ancillary Testing EDOH 09/05 11:59 Order name: Glucose, Ancillary Testing EDOH 09/05 16:58 Order name: Glucose, Ancillary Testing EDOH 09/05 00:38 Order name: XRAY Chest (1 view) 09/05 00:38 Order name: EKG; Complete Time: 00:39 09/05 00:38 Order name: Cardiac monitoring; Complete Time: 13:03 09/05 00:38 Order name: EKG - Nurse/Tech 09/05 00:38 Order name: IV Saline Lock 09/05 00:38 Order name: Labs collected and sent 09/05 00:38 Order name: O2 Per Protocol 09/05 00:38 Order name: O2 Sat Monitoring 09/05 16:35 Order name: CT EDMS EC:38 Rate is 70 beats/min. Rhythm is regular. PA interval is normal. QRS interval is cp prolonged at 114 msec. QT interval is normal. T waves are Inverted in lead aVR. Interpreted by me. Reviewed by me. Administered Medications: 00:40 Drug: SOLU-Medrol (methylPrednisoLONE) 125 mg Route: IVP; Site: right antecubital; ca1 01:16 Drug: Lasix (furosemide) 40 mg Route: IVP; Site: right antecubital; ca1 01:22 Drug: Albuterol - atroVENT (ipratropium) (3:1) (2.5 mg - 0.5 mg) 3 ml Route: Nebulizer; ca1 02:16 Drug: Xopenex (levalbuterol) (3) 1.25 mg Route: Inhalation; ca1 03:39 Drug: Magnesium Sulfate 1 grams Route: IVPB; Infused Over: 1 hrs; Site: right ak2 antecubital; Disposition: 09/06 07:10 Co-signature as Attending Physician, Rashel Johnson MD I agree with the assessment and cassia plan of care. Disposition Summary: 09/05/20 03:34 Hospitalization Ordered Hospitalization Status: Observation cp Provider: Pedro Ward cp Condition: Stable cp Problem: new cp Symptoms: have improved cp Bed/Room Type: Standard cp Location: Telemetry/MedSurg (observation)(09/05/20 13:45) dw Room Assignment: 223(09/05/20 13:45) dw Diagnosis - Unspecified asthma with (acute) exacerbation cp - Dyspnea cp - Hypomagnesemia cp Forms: - Medication Reconciliation Form cp - SBAR form cp Signatures: Dispatcher [employer] EDMS Liberty Armenta RN RN mw Woody, Diana, RN RN dw Anderson, Corey, MD MD cha Ballard, Brenda, RN RN bb Page, Corey, PA PA cp Marcy Turk RN RN ca1 Kapolka, Anthony ak2 Corrections: (The following items were deleted from the chart) 09/05 01:10 00:39 CORONAVIRUS ordered. EDMS EDMS 02:34 02:34 Normal except: RBC 4.26; HGB 13.5; PLT 137. cp cp 03:41 03:34 Telemetry/MedSurg (observation) cp mw 03:41 03:34 cp mw 13:45 03:41 BR ER HOLD mw dw 13:45 03:41 ERHOLD- mw dw
--- NOTE | 2020-09-05 03:53 | P.HP ---
Certification for Inpatient Patient admitted to: Observation With expected LOS: <2 Midnights Patient will require the following post-hospital care: None Practitioner: I am a practitioner with admitting privileges, knowledge of patient current condition, hospital course, and medical plan of care. Services: Services provided to patient in accordance with Admission requirements found in Title 42 Section 412.3 of the Code of Federal Regulations <Tahir Ortiz - Last Filed: 09/05/20 03:50> Patient History Date of Service: 09/05/20 Primary Care Provider: Dr. Turner Reason for admission: Asthma exacerbation History of Present Illness: 60-year-old male with history of asthma, diabetes mellitus type 2, hypertension, hyperlipidemia presents emergency department for 2 weeks of shortness of breath. Patient reports shortness of breath has been progressive, cough started today. Patient evaluated in the emergency department, labs unremarkable chest x-ray unremarkable, patient received 2 rounds of albuterol/Atrovent/Xopenex and IV steroids but was still wheezing and mildly hypoxic on room air saturating around 90%. ED provider wishes to admit under observation for asthma exacerbation. - Past Medical/Surgical History Diabetic: No -: hyperlipidemia -: Restless leg syndrome -: Hypertension -: obesity -: Asthma -: none Psychosocial/ Personal History: Unemployed, lives with family - Family History Mother -: Hypertension, Diabetes Father -: Heart disease - Social History Smoking Status: Never smoker Alcohol use: Yes CD- Drugs: No Caffeine use: Yes Place of Residence: Home <Tahir Ortiz - Last Filed: 09/05/20 03:50> Date of Service: 09/05/20 <Pedro Ward - Last Filed: 09/05/20 14:13> Allergies No Known Allergies Allergy (Verified 12/04/17 01:24) Home Medications: Ropinirole HCl 1 tab PO BEDTIME 12/04/17 Atorvastatin Calcium [Lipitor] 40 mg PO DAILY #30 tablet 12/05/17 Clopidogrel Bisulfate [Plavix] 75 mg PO DAILY #30 tablet 12/05/17 Albuterol Sulfate [Proair Hfa] 2 puff IH Q4H PRN 09/05/20 Amlodipine [Norvasc*] 1 tab PO DAILY 09/05/20 Levothyroxine Sodium [Levothyroxine] 1 tab PO DAILY 09/05/20 Terazosin HCl 1 tab PO BEDTIME 09/05/20 lisinopriL [Prinivil*] 2 tab PO DAILY 09/05/20 Review of Systems 10-point ROS is otherwise unremarkable Respiratory: Shortness of Breath, Wheezing <Tahir Ortiz - Last Filed: 09/05/20 03:50> Physical Examination - Physical Exam General: Alert, In no apparent distress, Oriented x3 HEENT: Atraumatic, PERRLA, Mucous membr. moist/pink Neck: Supple, 2+ carotid pulse no bruit, No LAD Respiratory: Normal air movement, Expiratory wheezes Cardiovascular: Regular rate/rhythm, Normal S1 S2 Gastrointestinal: Normal bowel sounds, No tenderness Musculoskeletal: No tenderness Integumentary: No rashes Neurological: Normal gait, Normal speech, Normal strength at 5/5 x4 extr, Normal tone, Normal affect Lymphatics: No axilla or inguinal lymphadenopathy - Studies Laboratory Data (last 24 hrs) 09/05/20 00:41: PT 12.1, INR 1.05 09/05/20 00:41: WBC 5.80, Hgb 13.5 L, Hct 39.6, Plt Count 137 L 09/05/20 00:41: Sodium 142, Potassium 3.8, BUN 11, Creatinine 0.61, Glucose 101, Magnesium 1.8, Total Bilirubin 0.7, AST 35, ALT 51, Alkaline Phosphatase 66 <Tahir Ortiz - Last Filed: 09/05/20 03:50> - Studies Laboratory Data (last 24 hrs) 09/05/20 00:41: PT 12.1, INR 1.05 09/05/20 00:41: WBC 5.80, Hgb 13.5 L, Hct 39.6, Plt Count 137 L 09/05/20 00:41: Sodium 142, Potassium 3.8, BUN 11, Creatinine 0.61, Glucose 101, Magnesium 1.8, Total Bilirubin 0.7, AST 35, ALT 51, Alkaline Phosphatase 66 <Pedro Ward - Last Filed: 09/05/20 14:13> Assessment and Plan - Plan Assessment Dyspnea/expiratory wheezing secondary to asthma exacerbation Diabetes mellitus type 2 Hypertension Hyperlipidemia Plan Dyspnea/expiratory wheezing secondary to asthma exacerbation: Continue with IV steroids, scheduled nebs, steroid inhaler, daily room air saturations. Anticipate clinical improvement over the course the next 24-48 hr. DVT prophylaxis with Lovenox 40 mg subcu once daily. Consult pulmonology as loyd castillo. Diabetes mellitus type 2: A.c. HS Accu-Cheks, sliding scale insulin therapy. Hypertension: Continue home meds Hyperlipidemia: Continue home meds Discharge Plan: Home Plan to discharge in: 24 Hours - Advance Directives Does patient have a Living Will: No Does patient have a Durable POA for Healthcare: No - Code Status/Comfort Care Code Status Assessed: Yes (Full code) Critical Care: No Time Spent Managing Pts Care (In Minutes): 55 <Tahir Ortiz - Last Filed: 09/05/20 03:50> - Plan Patient with bilateral crackles and wheeze on exam Trace lower extremity edema. CXR with some volume overload appearance We will obtain CT chest to rule out PE, evaluate pulmonary edema/effusions May benefit from diuresis <Pedro Ward - Last Filed: 09/05/20 14:13>
[2020-09-05] MEDS ORDERED: ACETAMINOPHEN 500 MG TAB PO PRN (03:57)
[2020-09-05] MEDS ORDERED: ONDANSETRON 4 MG/2 ML VIAL IV PRN (03:57)
[2020-09-05] MEDS ORDERED: MAGNESIUM SULFATE 1 gm IVPB 1 GM/100 ML BAG IV ONE (03:59)
[2020-09-05 04:00] VITALS: BMI 47.2
[2020-09-05] MEDS ORDERED: METHYLPREDNISOLONE 40 MG INJ ONE (05:39)
[2020-09-05] MEDS: METHYLPREDNISOLONE 125 MG INJ IV SCH ×4 (05:39→23:55)
[2020-09-05] MEDS: INSULIN -REGULAR HUMAN 50 UNIT/0.5 ML ML SQ SCH ×4 (07:30→21:00)
[2020-09-05] MEDS: ALBUTEROL 2.5 MG/3 ML NEB SOL NEB SCH ×3 (08:34→20:20)
[2020-09-05] MEDS: IPRATROPIUM BROM 0.5MG/2.5ML NEB SCH ×3 (08:34→20:20)
[2020-09-05] MEDS ORDERED: PNEUMOCOCCAL VACCINE 0.5 ML IMVAC ONE (09:00)
[2020-09-05] MEDS ORDERED: DULERA 200/5 (MOMETASONE/FORMOTEROL) INHALER IH SCH ×2 (09:00)
--- NOTE | 2020-09-05 09:07 | RAD REPORT ---
EXAM DESCRIPTION: RAD - Chest Single View - 09/05/2020 12:56 am CLINICAL HISTORY: SOB;Chest pain Chest pain. COMPARISON: Chest Single View dated 12/03/2017; CHEST SINGLE VIEW dated 09/03/2013; CHEST SINGLE VIEW dated 02/14/2012 FINDINGS: Portable technique limits examination quality. Mild interstitial pulmonary edema is noted. The heart is moderately enlarged with a tortuous thoracic aorta. No displaced fractures. IMPRESSION: Mild CHF.
[2020-09-05] MEDS: ENOXAPARIN 40 MG/0.4 ML SQ SCH (09:43)
[2020-09-05] MEDS ORDERED: ENOXAPARIN 40 MG/0.4 ML SQ ONE (10:05)
[2020-09-05] MEDS ORDERED: POTASSIUM CL SA 10 MEQ TAB PO ONE ×2 (11:30→12:31)
--- NOTE | 2020-09-05 11:46 | EKG ---
Test Date: 2020-09-05 Test Time: 00:31:50 Machine Tender: MEASUREMENT RESULTS: Intervals: Rate: 70 [place]: 130 QRSD: 114 QT: 396 QTc: 427 [place]: P: 25 [place]: 130 QRS: -35 T: 48 INTERPRETIVE STATEMENTS: Normal sinus rhythm Left axis deviation Incomplete left bundle branch block Abnormal ECG Compared to ECG 12/03/2017 21:46:13 Left-axis deviation now present Left bundle-branch block now present Sinus bradycardia no longer present Right-axis deviation no longer present Myocardial infarct finding no longer present Electronically Signed On 09-05-20 11:46:04 CDT by Hans Guillory
[2020-09-05] MEDS ORDERED: ACETAMINOPHEN 500 MG TAB ONE (12:05)
--- NOTE | 2020-09-05 16:34 | RAD REPORT ---
EXAM DESCRIPTION: CT - Chest For Pe Angio - 09/05/2020 4:07 pm CLINICAL HISTORY: Chest pain COMPARISON: September 05, 2020 chest x-ray TECHNIQUE: Dynamically enhanced axial 3 mm thick images of the chest were obtained during administra tion of <100> mL Isovue 370 IV contrast. Coronal and oblique reconstruction images were generated and reviewed. Exam utilizes a protocol for optimal evaluation of pulmonary arterial tree. Maximum intensity projections 3D imaging was utilized All CT scans are performed using dose optimization technique as appropriate and may include automated exposure control or mA/KV adjustment according to patient size. FINDINGS: A pulmonary embolus is not seen. A thoracic aortic aneurysm is not noted. Cardiomegaly A pleural effusion is not seen. A pericardial effusion is not seen. Small area of atelectasis within the lingula. IMPRESSION: Negative for a pulmonary embolism.
[2020-09-05] MEDS ORDERED: INSULIN -REGULAR HUMAN 50 UNIT/0.5 ML ML ONE (17:11)
[2020-09-06] MEDS ORDERED: HYDROCODONE/APAP 5/325 MG TAB PO ONE ×2 (00:02→11:58)
[2020-09-06] MEDS: IPRATROPIUM BROM 0.5MG/2.5ML NEB SCH ×4 (02:10→20:10)
[2020-09-06] MEDS: ALBUTEROL 2.5 MG/3 ML NEB SOL NEB SCH ×4 (02:10→20:10)
[2020-09-06 05:52] LABS: ALT/SGPT 52 U/L (12-78); AST/SGOT 29 U/L (15-37); Albumin 4.1 g/dL (3.4-5.0); Alkaline Phosphatase 69 U/L (45-117); BUN Blood Urea Nitrogen 16 mg/dL (7-18); Bicarbonate 25 mmol/L (21-32); Bilirubin Total 0.7 mg/dL (0.2-1.0); Glucose Level 170 mg/dL (74-106); HDL Cholesterol 50 mg/dL (40-60); LDL Cholesterol, Calculated 61 (<130); Magnesium 2.3 mg/dL (1.8-2.4); Potassium 4.3 mmol/L (3.5-5.1); Protein, Total 6.7 g/dL (6.4-8.2); Sodium Level 138 mmol/L (136-145); Thyroid Stimulating Hormone 0.593 uIU/mL (0.360-3.740)
[2020-09-06 06:01] LABS: Absolute Lymphocytes (CBC) 0.7 K/uL (0.7-4.9); Basophils % 0.1 % (0-1.3); Hematocrit 39.9 % (39.6-49.0); Lymphocytes % 7.9 % (15.3-44.8); MPV 9.4 fL (7.6-11.3); RBC Red Blood Cell Count 4.31 M/uL (4.33-5.43)
[2020-09-06] MEDS: METHYLPREDNISOLONE 125 MG INJ IV SCH ×2 (06:29→12:56)
[2020-09-06] MEDS: INSULIN -REGULAR HUMAN 50 UNIT/0.5 ML ML SQ SCH ×4 (07:30→21:00)
--- NOTE | 2020-09-06 08:01 | RAD REPORT ---
EXAM DESCRIPTION: [place] Single View09/06/2020 7:16 am CLINICAL HISTORY: Shortness breath COMPARISON: September 05, 2020 FINDINGS: Lingular opacity probably atelectasis Remainder lungs appear clear. The heart remains enlarged
[2020-09-06] MEDS: ENOXAPARIN 40 MG/0.4 ML SQ SCH (08:49)
[2020-09-06 10:07] LABS: Blood Morphology Comment NOT SEEN (NOT SEEN); Platelet Estimate ADEQ; White Blood Cell Scan OK (OK)
[2020-09-06] MEDS: DOCUSATE NA 100 MG CAP PO SCH ×2 (12:57→21:28)
[2020-09-06] MEDS ORDERED: ALBUTEROL INHALER 60 PUFF/8 GM IH PRN (14:40)
--- NOTE | 2020-09-06 14:46 | P.PN ---
Subjective Date of Service: 09/06/20 Primary Care Provider: Dr. Turner Chief Complaint: Asthma exacerbation Subjective: Improving (Feels better, breathing more comfortably on 2 L nasal cannula. Reports slight headache. Denies any recent lower extremity swelling. Denies chest pain/pressure) Review of Systems 10-point ROS is otherwise unremarkable Physical Examination - Vital Signs Temperature: 97.2 F Blood Pressure: 128/81 Pulse: 77 Respirations: 18 Pulse Ox (%): 93 Assessment & Plan Physician Review Additional Text: Physical Exam General: Alert, In no apparent distress, Oriented x3 HEENT: Normal conjunctiva, sclera anicteric Respiratory: Normal air movement, Expiratory wheezes bilaterally, nonlabored respirations on 2 L nasal cannula Cardiovascular: Regular rate/rhythm, Normal S1 S2 Gastrointestinal: Soft, nontender, nondistended Musculoskeletal: No joint tenderness Integumentary: No rashes Problem List Acute hypoxemic respiratory failure secondary to acute on chronic asthma exacerbation Diabetes mellitus type 2 Hypertension Hyperlipidemia -Continue IV steroids, nebs, inhalers Continue DVT prophylaxis with Lovenox With improvement, however still requiring oxygen CT done yesterday negative for PE, minimal pleural effusion give 1 dose IV Lasix today If no significant improvement, will consider pulmonology consult -resume home antihypertensives, statin, ropinirole VTE: lovenox Code: full Dispo: anticipate dc home in 24-48hrs Time Spent Managing Pts Care (In Minutes): 40
[2020-09-06] MEDS ORDERED: FUROSEMIDE 20 MG/ 2ML VIAL IV ONE (15:00)
[2020-09-06] MEDS ORDERED: ALBUTEROL IH PRN (15:04)
[2020-09-06] MEDS ORDERED: ROPINIROLE HCL 0.25 MG TAB PO SCH (21:00)
[2020-09-06] MEDS ORDERED: TERAZOSIN HCL 1 MG CAP PO SCH (21:00)
[2020-09-06] MEDS ORDERED: TERAZOSIN HCL 2 MG PO SCH (21:00)
[2020-09-06] MEDS: predniSONE 20 MG TAB PO SCH (21:28)
[2020-09-07] MEDS: IPRATROPIUM BROM 0.5MG/2.5ML NEB SCH ×2 (02:05→08:55)
[2020-09-07] MEDS: ALBUTEROL 2.5 MG/3 ML NEB SOL NEB SCH ×2 (02:05→08:55)
[2020-09-07 04:54] LABS: BUN Blood Urea Nitrogen 19 mg/dL (7-18); Bicarbonate 31 mmol/L (21-32); Glucose Level 224 mg/dL (74-106); Magnesium 2.5 mg/dL (1.8-2.4); NT PRO-BNP 569 pg/mL (<125); Potassium 3.9 mmol/L (3.5-5.1); Sodium Level 139 mmol/L (136-145)
[2020-09-07] MEDS ORDERED: LEVOTHYROXINE SOD 0.05 MG TABLET PO SCH (06:30)
[2020-09-07] MEDS: INSULIN -REGULAR HUMAN 50 UNIT/0.5 ML ML SQ SCH ×2 (07:30→11:30)
[2020-09-07] MEDS: predniSONE 20 MG TAB PO SCH (08:28)
[2020-09-07] MEDS: DOCUSATE NA 100 MG CAP PO SCH (08:29)
[2020-09-07] MEDS: ENOXAPARIN 40 MG/0.4 ML SQ SCH (08:29)
[2020-09-07 08:30] VITALS: BP 122/72
[2020-09-07 08:38] VITALS: TEMP 97.7
[2020-09-07] MEDS ORDERED: AMLODIPINE 10 MG TAB PO SCH (09:00)
[2020-09-07] MEDS ORDERED: ATORVASTATIN 40 MG TAB PO SCH (09:00)
[2020-09-07] MEDS ORDERED: CLOPIDOGREL 75 MG TABLET PO SCH (09:00)
[2020-09-07] MEDS ORDERED: POTASSIUM CL SA 10 MEQ TAB PO ONE (09:00)
[2020-09-07 12:42] VITALS: O2SAT 94
[2020-09-07] MEDS ORDERED: PNEUMOCOCCAL VACCINE 0.5 ML IMVAC ONE (13:00)
--- NOTE | 2020-09-07 20:16 | P.DS ---
Admission Date: 09/05/20 Discharge Date: 09/07/20 Primary Care Provider: Dr. Turner Disposition: ROUTINE DISCHARGE Discharge Condition: GOOD Reason for Admission: Asthma exacerbation Procedures: CXR (09/05): Mild interstitial pulmonary edema is noted. The heart is moderately enlarged with a tortuous thoracic aorta. No displaced fractures. IMPRESSION: Mild CHF. CTA Chest (09/05): FINDINGS: A pulmonary embolus is not seen. A thoracic aortic aneurysm is not noted. Cardiomegaly A pleural effusion is not seen. A pericardial effusion is not seen. Small area of atelectasis within the lingula. IMPRESSION: Negative for a pulmonary embolism. CXR (09/06): Lingular opacity probably atelectasis Remainder lungs appear clear. The heart remains enlarged Problem List Acute hypoxemic respiratory failure secondary to acute on chronic asthma exacerbation Diabetes mellitus type 2, non-insulin dependent Hypertension Hyperlipidemia Brief History of Present Illness: 60-year-old male with history of asthma, diabetes mellitus type 2, hypertension, hyperlipidemia presents emergency department for 2 weeks of shortness of breath. Patient reports shortness of breath has been progressive, cough started today. Patient evaluated in the emergency department, labs unremarkable chest x-ray unremarkable, patient received 2 rounds of albuterol/Atrovent/Xopenex and IV steroids but was still wheezing and mildly hypoxic on room air saturating around 90%. Hospital Course: Received treatment with steroids and nebulizers with improvement of symptoms. Initial CXR somewhat concerning for pulmonary edema. CT chest obtained for further evaluation and no significant findings. He did receive one dose of IV lasix 20mg. On day of discharge he was feeling significantly better, breathing comfortably, ambulating without dyspnea on room air. Discharged home with prednisone and albuterol inhaler. Follow up with PCP in 3-5 days. During morning rounds, I did notice patient having apneic events while sleeping. Highly suspect patient has undiagnosed GREYSON. Recommended f/u with PCP to have sleep study. Unfortunately patient is without insurance and can't afford testing at this time, but plans to have this looked into as soon as he can afford it. Vital Signs/Physical Exam: Physical Exam General: Alert, In no apparent distress, Oriented x3 HEENT: Normal conjunctiva, sclera anicteric Respiratory: Normal air movement, clear to auscultation bilaterally, nonlabored on room air Cardiovascular: Regular rate/rhythm, Normal S1 S2 Gastrointestinal: Soft, nontender, nondistended Musculoskeletal: No joint tenderness Integumentary: No rashes Temp Pulse Resp BP Pulse Ox 97.7 F 81 17 122/72 95 09/07/20 08:00 09/07/20 08:29 09/07/20 08:00 09/07/20 08:29 09/07/20 08:00 Laboratory Data at Discharge: WBC 8.50 K/uL (4.3-10.9) D 09/06/20 05:03 Hgb 14.0 g/dL (13.6-17.9) 09/06/20 05:03 Hct 39.9 % (39.6-49.0) 09/06/20 05:03 Plt Count 144 K/uL (152-406) L 09/06/20 05:03 PT 12.1 SECONDS (9.5-12.5) 09/05/20 00:41 INR 1.05 09/05/20 00:41 Sodium 139 mmol/L (136-145) 09/07/20 04:12 Potassium 3.9 mmol/L (3.5-5.1) 09/07/20 04:12 BUN 19 mg/dL (7-18) H 09/07/20 04:12 Creatinine 0.74 mg/dL (0.55-1.3) 09/07/20 04:12 Glucose 224 mg/dL (74-106) H 09/07/20 04:12 Magnesium 2.5 mg/dL (1.8-2.4) H 09/07/20 04:12 Total Bilirubin 0.7 mg/dL (0.2-1.0) 09/06/20 05:03 AST 29 U/L (15-37) 09/06/20 05:03 ALT 52 U/L (12-78) 09/06/20 05:03 Alkaline Phosphatase 69 U/L (45-117) 09/06/20 05:03 Triglycerides 60 mg/dL (<150) 09/06/20 05:03 Cholesterol 123 mg/dL (<200) 09/06/20 05:03 HDL Cholesterol 50 mg/dL (40-60) 09/06/20 05:03 Cholesterol/HDL Ratio 2.46 09/06/20 05:03 Home Medications: Ropinirole HCl 1 tab PO BEDTIME 12/04/17 Atorvastatin Calcium [Lipitor] 40 mg PO DAILY #30 tablet 12/05/17 Clopidogrel Bisulfate [Plavix] 75 mg PO DAILY #30 tablet 12/05/17 Amlodipine [Norvasc*] 1 tab PO DAILY 09/05/20 Levothyroxine Sodium [Levothyroxine] 1 tab PO DAILY 09/05/20 Terazosin HCl 1 tab PO BEDTIME 09/05/20 lisinopriL [Prinivil*] 2 tab PO DAILY 09/05/20 Albuterol Sulfate [Proair Hfa] 2 puff IH Q4H PRN 30 Days #1 inhaler 09/07/20 predniSONE [Prednisone*] 20 mg PO BID 4 Days #8 tab 09/07/20 New Medications: predniSONE [Prednisone*] 20 mg PO BID 4 Days #8 tab Albuterol Sulfate [Proair Hfa] 2 puff IH Q4H PRN 30 Days #1 inhaler PRN Reason: Shortness Of Breath Diet: AHA Activity: Ad jad Followup: NONE,NONE [Primary Care Provider] - Time spent managing pt's care (in minutes): 45
--- NOTE | 2020-09-08 08:41 | ECHO ---
HEIGHT: 5 ft 1 in WEIGHT: 250 lb 0 oz DATE OF STUDY: 09/07/[address]: Pedro Ward MD 2-DIMENSIONAL: YES M.MODE: YES DOPPLER: YES COLOR FLOW: YES TDS: NO PORTABLE: NO DEFINITY: NO BUBBLE STUDY: NO DIAGNOSIS: EVALUATE FUNCTION, SHORTNESS OF BREATH, HYPOXIA CARDIAC HISTORY: CATHERIZATION: NO SURGERY: NO PROSTHETIC VALVE: NO PACEMAKER: NO MEASUREMENTS (cm) DIASTOLIC (NORMALS) SYSTOLIC (NORMALS) IVSd 1.1 (0.6-1.2) LA Diam 3.0 (1.9-4.0) LVEF 55-60% LVIDd 6.0 (3.5-5.7) LVIDs 4.8 (2.0-3.5) %FS 20% LVPWd 1.2 (0.6-1.2) Ao Diam 2.9 (2.0-3.7) 2 DIMENSIONAL ASSESSMENT: RIGHT ATRIUM: NORMAL LEFT ATRIUM: NORMAL RIGHT VENTRICLE: NORMAL LEFT VENTRICLE: NORMAL TRICUSPID VALVE: NORMAL MITRAL VALVE: PULMONIC VALVE: NORMAL AORTIC VALVE: CALCIFIED PERICARDIAL EFFUSION: NONE AORTIC ROOT: NORMAL LEFT VENTRICULAR WALL MOTION: NORMAL DOPPLER/COLOR FLOW: SEE BELOW. COMMENTS: NORMAL LEFT VENTRICULAR EJECTION FRACTION 55-60%. NORMAL WALL MOTION. MILD MITRAL REGURGITATION. TECHNOLOGIST: Abdiel CHU
== END 2020-09-07 13:42 | disposition home or self-care (01) | DRG 202 ==
LOC: ER 00:14 → ERHOLD 03:02 → OBSVTOIN 08:08 → 2ND 17:08
PROVIDERS: ADMIT Hospitalist; ATTEND Hospitalist
DX: J45.901 Unspecified asthma with (acute) exacerbation (principal); J96.01 Acute respiratory failure with hypoxia; E11.9 Type 2 diabetes mellitus without complications; I10 Essential (primary) hypertension; E78.5 Hyperlipidemia, unspecified; G47.33 Obstructive sleep apnea (adult) (pediatric); G25.81 Restless legs syndrome; Z23 Encounter for immunization; Z20.822 Contact with and (suspected) exposure to COVID-19
CPT/HCPCS: 36415; 71045; 71275; 80048; 80053; 80061; 80076; 82947; 83735; 83880; 84439; 84443; 84484; 85025; 85379; 85610; 90471; 90732; 93005; 93306; 94010; 94640; 96374; 96375; 99284; G0378; J1650; J1940; J2920; J2930; J3475; J7512; J7606; Q9967; U0003

== ENCOUNTER 2021-03-09 17:11 | Emergency (ER) | payer SELFPAY ==
--- OUTSIDE RECORDS SUMMARY | 2021-03-09 17:14 | XMS REPORT | Continuity of Care Document ---
:1960 Author Organization [facility] t Address [address] [place] [address] Care Team Providers Name Role Phone SANDEEP VALADEZ Attending Clinician Unavailable LUCIA DIXON Attending Clinician Unavailable Juan Luis ANDRE Attending Clinician Unavailable Payers Payer Name Policy Type Policy Number Effective Date Expiration Date S jhonatan [facility] [id number] 2015 2018 00:00: 00 - OUT OF STATE 00:00:00 Problems This patient has no known problems. Allergies, Adverse Reactions, Alerts Allergy Allergy Status Severity Reaction(s) Onset Inactive Treating Comm ents Source Name Type Date Date Clinician NO KNOWN Drug Active [facility] Medications This patient has no known medications. Procedures This patient has no known procedures. Encounters Start End Encounter Admission Attending Care Care Encounter Source Date/Time Date/Time Type Type Clinicians Facility Department ID 2020-09-30 2020-09-30 Emergency X ALLYSON [facility] ERT [id number] [facility] 06:02:00 06:02:[address] [facility] 2020-08-02 2020-08-02 Emergency X DESTINY [facility] ERT [id number] [employer] 12:56:00 12:56:[address] [facility] 2016-07-09 2016-07-09 Emergency X JES [facility] ERT [id number] [facility] 10:56:23 14:12:[address] [facility] Results This patient has no known results.
[2021-03-09] MEDS ORDERED: HYDROCODONE/APAP 5/325 MG TAB ONE (20:26)
--- NOTE | 2021-03-09 21:16 | RAD REPORT ---
EXAM DESCRIPTION: CT - Spine Lumbar Wo Con - 03/09/2021 9:00 pm CLINICAL HISTORY: LOWER BACK PAIN COMPARISON: No comparisonsHead C Spine Cap W Con dated 12/03/2017 TECHNIQUE: Axial noncontrast CT imaging of the lumbar spine was performed with coronal and sagittal re-formatted images. All CT scans are performed using dose optimization technique as appropriate and may include automated exposure control or mA/KV adjustment according to patient size. FINDINGS: The study assumes 12 rib-bearing vertebral bodies and a transitional S1 vertebral body. Grade 1 anterolisthesis of L5 on S1 with advanced facet degenerative changes. Interval development of gas in a left paracentral disc location at L5. This could be within a left paracentral disc protrusi on. If present, this would contribute to left lateral recess stenosis. Paraspinal tissues are normal in thickness. No paraspinal abscess or hematoma seen. Intervertebral disc disease assessment is inherently limited by CT. Within these limitations, no high -grade canal stenosis suspected. IMPRESSION: No fracture of the lumbar spine is identified. Advanced facet degenerative changes noted at L5-S1 (see note above regarding numbering of vertebral bodies). Gas in the canal at L5 in the lef t paracentral location which is presumably within a protruded disc. This results in left lateral rece ss stenosis and could explain a left-sided radiculopathy if present. In addition, advanced facet dege nerative changes at L5-S1 could also be a source of pain. Consider MRI follow-up for assessment of disc disease if clinically desired.
--- NOTE | 2021-03-09 22:16 | EDPHYS ---
Physician Documentation [facility] Name: Fabian Hamm Jr Age: 60 yrs Sex: Male : 1960 Arrival Date: 03/09/2021 Time: 17:16 Bed 9 Private MD: ED Physician Dejuan Leos HPI: 03/09 20:17 This 60 yrs old Male presents to ER via Ambulatory with complaints of Back mh7 Pain. 20:17 The patient presents with pain that is acute, and spasm, and tenderness. The symptoms mh7 are located in the low back. Onset: The symptoms/episode began/occurred 3 day(s) ago. The pain does not radiate. Associated signs and symptoms: Pertinent negatives: abdominal pain, chest pain, constipation, dysuria, fever, headache, hematuria, incontinence, nausea, numbness, tingling, urinary retention, vomiting, weakness. The problem was sustained when lifting heavy object, . Modifying factors: The patient symptoms are alleviated by nothing, the patient symptoms are aggravated by movement, standing, walking. Severity of symptoms: At their worst the symptoms were moderate, 2 day(s) ago, in the emergency department the symptoms are unchanged. Patient states that he was at work 3 days ago reached up to grab a heavy object then started having lower back pain. He denies any fall or direct trauma. He denies any chest pain, abdominal pain, fever, shortness of breath, nausea, vomiting, diarrhea, dysuria, bowel/bladder retention or incontinence, numbness/tingling, or weakness.. Historical: - Allergies: 17:33 No Known Allergies; ll1 - PMHx: 17:33 Diabetes - NIDDM; Hyperlipidemia; Hypertension; restless leg syndrome; ll1 - PSHx: 17:33 None; ll1 - Immunization history:: Client reports receiving the 2nd dose of the Covid vaccine. - Social history:: Smoking status: Patient denies any tobacco usage or history of. ROS: 20:17 Constitutional: Negative for fever, chills, and weight loss, Eyes: Negative for injury, mh7 pain, redness, and discharge, ENT: Negative for injury, pain, and discharge, Neck: Negative for injury, pain, and swelling, Cardiovascular: Negative for chest pain, palpitations, and edema, Respiratory: Negative for shortness of breath, cough, wheezing, and pleuritic chest pain, Abdomen/GI: Negative for abdominal pain, nausea, vomiting, diarrhea, and constipation, : Negative for injury, bleeding, discharge, and swelling, MS/Extremity: Negative for injury and deformity, Skin: Negative for injury, rash, and discoloration, Neuro: Negative for headache, weakness, numbness, tingling, and seizure, Psych: Negative for depression, anxiety, suicide ideation, homicidal ideation, and hallucinations, Allergy/Immunology: Negative for hives, rash, and allergies, Endocrine: Negative for neck swelling, polydipsia, polyuria, polyphagia, and marked weight changes, Hematologic/Lymphatic: Negative for swollen nodes, abnormal bleeding, and unusual bruising. Exam: 20:17 Head/Face: Normocephalic, atraumatic. Eyes: Pupils equal round and reactive to light, mh7 extra-ocular motions intact. Lids and lashes normal. Conjunctiva and sclera are non-icteric and not injected. Cornea within normal limits. Periorbital areas with no swelling, redness, or edema. Neck: Trachea midline, no thyromegaly or masses palpated, and no cervical lymphadenopathy. Supple, full range of motion without nuchal rigidity, or vertebral point tenderness. No Meningismus. Chest/axilla: Normal chest wall appearance and motion. Nontender with no deformity. No lesions are appreciated. Cardiovascular: Regular rate and rhythm with a normal S1 and S2. No gallops, murmurs, or rubs. Normal PMI, no JVD. No pulse deficits. Respiratory: Lungs have equal breath sounds bilaterally, clear to auscultation and percussion. No rales, rhonchi or wheezes noted. No increased work of breathing, no retractions or nasal flaring. Abdomen/GI: Soft, non-tender, with normal bowel sounds. No distension or tympany. No guarding or rebound. No evidence of tenderness throughout. 20:17 Skin: Warm, dry with normal turgor. Normal color with no rashes, no lesions, and no evidence of cellulitis. MS/ Extremity: Pulses equal, no cyanosis. Neurovascular intact. Full, normal range of motion. Neuro: Awake and alert, GCS 15, oriented to person, place, time, and situation. Cranial nerves II-XII grossly intact. Motor strength 5/5 in all extremities. Sensory grossly intact. Cerebellar exam normal. Normal gait. Psych: Awake, alert, with orientation to person, place and time. Behavior, mood, and affect are within normal limits. 20:17 Constitutional: The patient appears in no acute distress, alert, awake, uncomfortable. 20:17 Back: pain, that is moderate, of the lumbar area, ROM is painful, with all movement, normal spinal alignment noted, CVA tenderness, is absent, vertebral tenderness, is appreciated at Lumbar, muscle spasm, is appreciated in the lumbar area, Straight leg raises: of both lower extremities does not illicit pain. Vital Signs: 17:34 BP 179 / 100; Pulse 51; Resp 17; Temp 97.6; Pulse Ox 97% ; Weight 113.4 kg; Height 5 ll1 ft. 1 in. (154.94 cm); Pain 10/10; 22:11 Pulse 66; Resp 14; Pulse Ox 100% on R/A; Pain 0/10; tw5 22:23 Pulse 18; Resp 68; Pulse Ox 94% on R/A; Pain 2/10; tw5 17:34 Body Mass Index 47.24 (113.40 kg, 154.94 cm) ll1 MDM: 22:13 Differential diagnosis: arthritis, chronic back pain, Fatigue Fracture Osteoarthritis mh7 ruptured disc, sprain, vertebral fracture. Data reviewed: vital signs, nurses notes, old medical records, radiologic studies, CT scan. Data interpreted: Pulse oximetry: on room air is 100 %. Interpretation: normal. Counseling: I had a detailed discussion with the patient and/or guardian regarding: the historical points, exam findings, and any diagnostic results supporting the discharge/admit diagnosis, the presence of at least one elevated blood pressure reading (>120/80) during this emergency department visit, radiology results, the need for outpatient follow up, to return to the emergency department if symptoms worsen or persist or if there are any questions or concerns that arise at home. Response to treatment: the patient's symptoms have markedly improved after treatment. 22:16 [facility] 20:11 Order name: CT Lumbar Spine Wo Con; Complete Time: 21:22 Administered Medications: 20:27 Drug: [place] (HYDROcodone-acetaminophen) 5 mg-325 mg 1 tabs Route: PO; tw5 22:13 Follow up: Response: No adverse reaction; Pain is decreased; RASS: Alert and Calm (0) tw5 Disposition Summary: 03/09/21 22:16 Discharge [facility] Symptoms: have improved [facility] Condition: Stable [facility] Diagnosis - Low back pain - Strain 7 - Other intervertebral disc degeneration, lumbar region [facility] - With: Private Physician - When: 1 - 2 days - Reason: Worsening of condition, Recheck today's complaints, Continuance of care, Re-evaluation by your physician [facility]up[facility] - With: Rk Lira MD - When: 1 - 2 days - Reason: Worsening of condition, Recheck today's complaints, Continuance of care Discharge Instructions: - Discharge Summary Sheet [facility] - Acute Back Pain, Adult [facility] - Musculoskeletal Pain [facility] - Back Injury Prevention, [id number] [facility] - Degenerative Disk Disease [facility] - Back Exercises, [id number] Forms: - Medication Reconciliation Form [facility] - Thank You Letter [facility] - Antibiotic Education [facility] - Prescription Opioid Use [facility] Prescriptions: - Ibuprofen 800 mg Oral Tablet - take 1 tablet by ORAL route every 8 hours As needed take with food; 15 tablet; 7 Refills: 0, Product Selection Permitted - methocarbamol 500 mg Oral Tablet - take 1 tablet by ORAL route 4 times per day; 20 tablet; Refills: 0, Product [facility] Selection Permitted - Tylenol-Codeine #3 300 mg-30 mg Oral - take 2 tablet by ORAL route every 6 hours As needed; 15 tablet; Refills: 0, [facility] Product Selection Permitted Signatures: Dispatcher [employer] Stephy Billy RN RN ll1 Dejuan Leos MD MD 7 Belem Dickens tw5
--- NOTE | 2021-03-09 22:16 | ER ---
Nurse's Notes [facility] Name: Fabian Hamm Jr Age: 60 yrs Sex: Male : 1960 Arrival Date: 03/09/2021 Time: 17:16 Bed 9 Private MD: Diagnosis: Low back pain-Strain;Other intervertebral disc degeneration, lumbar region Presentation: 03/09 17:34 Chief complaint: Patient states: Low back pain for 3 days. Hurt after getting out of 1 bed wrong. No trauma or falls. No dysuria. Coronavirus screen: Vaccine status: Patient reports receiving the 2nd dose of the covid vaccine. Client denies travel out of the [place] in the last 14 days. At this time, the client does not indicate any symptoms associated with coronavirus-19. Ebola Screen: Patient denies travel to an Ebola-affected area in the 21 days before illness onset. Initial Sepsis Screen: Does the patient meet any 2 criteria? No. Patient's initial sepsis screen is negative. Does the patient have a suspected source of infection? Yes: Bone or joint infection. Risk Assessment: Do you want to hurt yourself or someone else? Patient reports no desire to harm self or others. Onset of symptoms was March 07, 2021. 17:34 Method Of Arrival: Ambulatory ll1 17:34 Acuity: ELIZABETH 4 ll1 Triage Assessment: 17:35 General: Appears uncomfortable, Behavior is calm, cooperative, appropriate for age. ll1 Pain: Complains of pain in low back Quality of pain is described as aching, Aggravated by increased activity. Neuro: No deficits noted. Cardiovascular: No deficits noted. Respiratory: No deficits noted. Musculoskeletal: Circulation, motion, and sensation intact. Capillary refill < 3 seconds, Reports pain in low back. Historical: - Allergies: 17:33 No Known Allergies; ll1 - PMHx: 17:33 Diabetes - NIDDM; Hyperlipidemia; Hypertension; restless leg syndrome; ll1 - PSHx: 17:33 None; ll1 - Immunization history:: Client reports receiving the 2nd dose of the Covid vaccine. - Social history:: Smoking status: Patient denies any tobacco usage or history of. Screenin:11 Abuse screen: Denies threats or abuse. Denies injuries from another. Nutritional tw5 screening: No deficits noted. Tuberculosis screening: No symptoms or risk factors identified. Fall Risk None identified. Assessment: 22:11 General: Reports "If i am just laying here it doesn't hurt, it is when I start to move tw5 that it hurts 10/10". Neuro: Level of Consciousness is awake, alert, obeys commands, Oriented to person, place, time, situation. Respiratory: Airway is patent Trachea midline Respiratory effort is even, unlabored. Musculoskeletal: Circulation, motion, and sensation intact. 22:23 General: Appears in no apparent distress. tw5 Vital Signs: 17:34 BP 179 / 100; Pulse 51; Resp 17; Temp 97.6; Pulse Ox 97% ; Weight 113.4 kg; Height 5 ll1 ft. 1 in. (154.94 cm); Pain 10/10; 22:11 Pulse 66; Resp 14; Pulse Ox 100% on R/A; Pain 0/10; tw5 22:23 Pulse 18; Resp 68; Pulse Ox 94% on R/A; Pain 2/10; tw5 17:34 Body Mass Index 47.24 (113.40 kg, 154.94 cm) ll1 ED Course: 17:16 Patient arrived in ED. as 17:35 Triage completed. ll1 17:35 Arm band placed on. ll1 19:50 Dejuan Leos MD is Attending Physician. [facility] 21:00 CT Lumbar Spine Wo Con In Process Unspecified. EDMS 21:12 Belem Dickens is Primary Nurse. tw5 22:11 Patient has correct armband on for positive identification. Pulse ox on. Door closed. tw5 Noise minimized. Lights dimmed. Verbal reassurance given. 22:14 Rk Lira MD is Referral Physician. [facility] 22:23 No provider procedures requiring assistance completed. Patient did not have IV access tw5 during this emergency room visit. Administered Medications: 20:27 Drug: [place] (HYDROcodone-acetaminophen) 5 mg-325 mg 1 tabs Route: PO; tw5 22:13 Follow up: Response: No adverse reaction; Pain is decreased; RASS: Alert and Calm (0) tw5 Outcome: 22:16 Discharge ordered by . 7 22:23 Discharged to home ambulatory. tw5 22:23 Condition: improved 22:23 Discharge instructions given to patient, Instructed on discharge instructions, follow up and referral plans. medication usage, Demonstrated understanding of instructions, follow-up care, medications, Prescriptions given X 3. 22:24 Patient left the ED. tw5 Signatures: Dispatcher [employer] Paige Peña Lynsay, RN RN ll1 Dejuan Leos MD MD 7 Belem Dickens tw5 Corrections: (The following items were deleted from the chart) 17:35 17:34 Pulse 50bpm; Resp 17bpm; Pulse Ox 97%; Temp 97.6F; 113.4 kg; Height 5 ft. 1 in.; ll1 BMI: 47.2; Pain 10/10; ll1
[2021-03-09 22:55] VITALS: BP 179/100; TEMP 97.6
[2021-03-09 22:57] VITALS: O2SAT 94
== END 2021-03-09 22:24 | disposition home or self-care (01) ==
LOC: ER 17:11
DX: S39.012A Strain of muscle, fascia and tendon of lower back, initial encounter (principal); M51.36 Other intervertebral disc degeneration, lumbar region; I10 Essential (primary) hypertension
CPT/HCPCS: 72131; 99284

== ENCOUNTER 2021-10-04 13:42 | Emergency (ER) | payer SELFPAY ==
--- OUTSIDE RECORDS SUMMARY | 2021-10-04 13:48 | XMS REPORT | Continuity of Care Document ---
:1960 Author Organization [facility] t Address [address] [place] [address] Care Team Providers Name Role Phone Raimundo Amy Primary Care Physician PURNIMA MANNING Attending Clinician Unavailable Purnima Manning MD Attending Clinician SANDEEP VALADEZ Attending Clinician Unavailable LUCIA DIXON Attending Clinician Unavailable MI ANDRE Attending Clinician Unavailable Payers Payer Name Policy Type Policy Number Effective Date Expiration Date S [facility] [id number] 2015 2018 00:00: 00 - OUT OF STATE 00:00:00 Problems Condition Condition Condition Status Onset Resolution Last Treating Co mments Source Name Details Category Date Date Treatment Clinician Date No known No known Disease Unive rs active active ity of problems problems [facility] Allergies, Adverse Reactions, Alerts Allergy Allergy Status Severity Reaction(s) Onset Inactive Treating Comm ents Source Name Type Date Date Clinician NO KNOWN Drug Active Univers ALLERGIE Class ity of S [facility] Social History Social Habit Start Date Stop Date Quantity Comments Source Exposure to Not sure [facility] SARS-CoV-2 (event) Medica l Branch Sex Assigned At [birth year] [facility] 00:00:00 00:00:00 Medical Branch Smoking Status Start Date Stop Date Source Unknown if ever smoked [facility] y [facility] Medical Branch Medications Ordered Filled Start Stop Current Ordering Indication Dosage Frequency Signature Comments Components Source Medication Medication Date Date Medication? Clinician (SIG) Name Name morpHINE 2021- No 4mg 4 mg, Slow Un magdiel injection 4 03-11 IV Push, ity of mg 22:45: 21:37 ONCE, 1 [place] 00 :00 dose, On Medical [place] 03/11/21 at 1645, STAT dexamethaso 2021- No 10mg 10 mg, IV Univers ne 03-11 Push, ity of (DECADRON 19:45: 19:02 [place] 00 :00 dose, On Medic al injection [place] 10 mg 03/11/21 at 1345, STAT ketorolac 2021- No 30mg 30 mg, Unive rs (TORADOL) 03-11 Slow IV ity of injection 19:45: 19:02 Push, [place] 30 mg 00 :00 ONCE, 1 Medical dose, On Branch 03/11/21 at 1345, MERY morpHINE No 4mg 4 mg, Slow Un magdiel injection 4 03-11 IV Push, ity of mg 19:45: 19:03 ONCE, 1 [place] 00 :00 dose, On Medical [place] 03/11/21 at 1345, STAT traMADoL 50 Yes [id number] 50mg Take 1 Univ ers mg tablet 03-11 tablet by ity o f 00:00: mouth [place] 00 every 6 Medical (six) Branch hours as needed (pain). Indication s: acute pain lidocaine 5 Yes [id number] Apply one Univers % (700 03-11 patch to ity of mg/patch) 00:00: most [place] patch 00 painful Medical area of Branch back up to 12 hours a day, as needed for pain. PHARMACIST : dispense one box predniSONE 2021- No [id number] 40mg Take 2 Univers 20 mg 03-11 tablets by ity of tablet 00:00: 05:59 mouth [place] 00 :00 daily for Medical 7 days. Branch azithromyci Yes [id number] 250mg Take 1 Univers n 8-14 tablet by ity of (ZITHROMAX 00:00: mouth [place] Z-FERNIE) 250 00 SEE-INSTRU Med ical mg tablet CTIONS. Branch Take 500 mg day 1, then 250 mg days 2 to 5. methylPREDN Yes [id number] Take by Univers ISolone 4 8-14 mouth ity of mg tablets 00:00: SEE-INSTRU [place] 00 CTIONS. Medical follow Branch package directions ondansetron Yes [id number] 4mg Take 1 Univers 4 mg 8-14 tablet by ity of disintegrat 00:00: mouth [place] ing tablet 00 every 4 Medica l (four) Branch hours as needed for Nausea and Vomiting (N/V). benzonatate Yes [id number] 100mg Take 1 Univers 100 mg 8-14 capsule by ity of capsule 00:00: mouth 3 [place] 00 (three) Medical times Branch daily as needed for Cough. albuterol Yes [id number] 2{puff} Inhale 2 Univers 90 8-14 Puffs ity of mcg/actuati 00:00: every 4 [place] as on inhaler 00 (four) Medical hours as Branch needed for Wheezing or Shortness of Breath. azithromyci Yes 250mg Take 1 Uni vers n 5-23 tablet by ity of (ZITHROMAX 00:00: mouth [place] Z-FRENIE) 250 00 SEE-INSTRU Med ical mg tablet CTIONS. Branch Take 500 mg day 1, then 250 mg days 2 to 5. albuterol-i Yes 1{puff} Inhale 1 Univers pratropium 5-23 Puff 4 ity of (COMBIVENT 00:00: (four) [place] RESPIMAT) 00 times Medical 20-100 daily. Branch mcg/actuati on inhaler benzonatate Yes 100mg Take 1 Uni vers (TESSALON 5-23 capsule by ity of RAZIA) 100 00:00: mouth 3 [place] as mg capsule 00 (three) Medica l times Branch daily as needed for Cough. acetaminoph Yes 1{tbl} Take 1 Un magdiel en-codeine 4-21 tablet by ity of (TYLENOL 00:00: mouth [place] #3) 300-30 00 every 4 Medica l mg tablet (four) Branch hours as needed for Pain unrelieved by non-narcot ic analgesics for up to 15 doses. Vital Signs Vital Name Observation Time Observation Value Comments Source Systolic blood 2021-03-11 17:43:00 128 mm[Hg] [facility] Diastolic blood 2021-03-11 17:43:00 85 [facility]Hg[facility] 2021-03-11 17:43:00 66 /min [facility] Body temperature 2021-03-11 17:43:00 36.5 Nadia [facility] Respiratory rate 2021-03-11 17:43:00 18 /min [facility] Body height 2021-03-11 17:43:00 154.9 cm [facility] Body weight 2021-03-11 17:43:00 113.399 kg [facility] BMI 2021-03-11 17:43:00 47.24 kg/m2 [facility] Oxygen saturation in 2021-03-11 17:43:00 95 /min [facility] Arterial blood by [facility] Pulse oximetry [facility] Procedures Procedure Date / Time Performed Performing Clinician [facility] e CONSENT/REFUSAL FOR 2021-03-11 17:29:20 Doctor Unassigned, No Un [facility] DIAGNOSIS AND Name [facility] TREATMENT Encounters Start End Encounter Admission Attending Care Care Encounter Source Date/Time Date/Time Type Type Clinicians Facility Department ID 2021-03-11 2021-03-11 Emergency X KERRI [facility] ERT [id number] Univers 11:45:00 16:01:00 PURNIMA madrigal [facility] 2021-03-11 2021-03-11 Emergency Kerri [facility] [id number] Univers 11:45:00 16:01:00 Purnima [id number] [id number] [facility] [id number] [facility] 084 Branch 2020-09-30 2020-09-30 Emergency Renetta VALADEZ ALMADELINE ERT [id number] Univers 06:02:00 06:02:00 SANDEEP [facility] 2020-08-02 2020-08-02 Emergency X DESTINY [facility] ERT [id number] Univers 12:56:00 12:56:00 LUCIA [facility] 2016-07-09 2016-07-09 Emergency X JES [facility] ERT [id number] Univers 10:56:23 14:12:00 MI [facility] Results Test Description Test Time Test Comments Results Result Comments Source TSH, THIRD GENERATION 2021-03-27 06:02:45 Test Item Value Reference Range Interpretation Comme nts TSH, THIRD GENERATION (test 4.870 UIU/ML 0.400-4.100 H UNLESS OTHERWISE INDICATED, code = 2821) ALL TESTING PER FORMED ATCLINICAL PATH [employer], [place] [id number] APPLICATION INTEGRATION ENGINEER: Alexei ALMENDAREZ [id number] [place] [id number] COMPREHENSIVE METABOLIC [id number] 05:09:10 Test Item Value Reference Range Interpretation Comments GLUCOSE (test code = 121 MG/DL 70-99 H 2216) BUN (test code = 13 MG/DL 6-20 2207) CREATININE (test 0.65 MG/DL 0.80-1.40 L code = 2214) eGFR (2020 CKD-EPI) 109 >60 (test code = 22211) ML/MIN/1.73 CALC BUN/CREAT (test 20 RATIO 6-28 code = 2235) SODIUM (test code = 142 MEQ/L 270-207 3779) POTASSIUM (test code 4.3 MEQ/L 3.5-5.4 = 222) CHLORIDE (test code 106 MEQ/L 95-107 = 2215) CARBON DIOXIDE (test 25 MEQ/L 19-31 code = 2206) CALCIUM (test code = 9.3 MG/DL 8.5-10.5 2208) PROTEIN, TOTAL (test 6.0 G/DL 6.1-8.3 L code = 2229) ALBUMIN (test code = 4.3 G/DL 3.5-5.2 2200) CALC GLOBULIN (test 1.7 G/DL 1.9-3.7 L code = 2240) CALC A/G RATIO (test 2.5 RATIO 1.0-2.6 code = 2234) BILIRUBIN, TOTAL 1.0 MG/DL See_Comment [Automated message] (test code = 2207) The syste m which generated this result transmit kinza reference range : <=1.2. The refe rence range was not u sed to interpret th is result as normal/abnormal . ALKALINE PHOSPHATASE 72 U/L 40-123 (test code = 2203) AST (test code = 16 U/L 9-50 2217) ALT (test code = 19 U/L 5-50 2218) LIPID [id number] 05:09:10 Test Item Value Reference Range Interpretation Comments CHOLESTEROL (test 153 MG/DL <200 code = 2210) TRIGLYCERIDES (test 149 MG/DL <150 code = 2232) HDL CHOLESTEROL (test 42 MG/DL >39 code = 2220) CALC LDL CHOL (test 86 MG/DL <100 NOTE: C ALCULATED LDL code = 2237) IS BASED ON JOSE-DYSON METHOD WHICHINCLUDES ADJUSTABLE TRIGLYCERIDE:VL DL CHOLESTEROL RAT IO.THIS FACTOR VARIES B Y MEASURED TRIGLY CERIDE AND NON-HDLCHOL ESTEROL CONCENTRATIONS WITH INCREASED CALCU LATED LDL SEENIN HIGH ER TRIGLYCERIDE OR LOWER NON-HDL SPECIME NS. FOR MOREINFORMATION , SEE CLIENT ANNOUNCE MENT AT [email or web address] RATIO LDL/HDL 2.05 RATIO <3.55 (test code = 2238) HEMOGLOBIN [id number] 04:59:00 Test Item Value Reference Range Interpretation Comments HEMOGLOBIN A1c (test 6.5 % 4.2-5.6 H [employer] AN DIABETES code = 59725) ASSOCIATION IDELINES FOR HGB A1C: PREDIABETES/INC REASED RISK . . . . . . . 5.7 -6.4% DIAGNOSIS OF DI ABETES . . . . . . . . . >=6 .5% WITH CONFIRMATION OR APPROPRIATE SYMPTOMS NOTE: ASSAY MAY BE AFFECTED BY HEMOGLOBINOPATH IES (SICKLE CELL ANEMIA, S- C DISEASE, OTHERS) OR MILADYS FICIALLY LOWERED BY DECR EASED RED CELL SURVIVAL ( HEMOLYTIC ANEMIAS, BLOOD LOSS, ETC.). CONSIDER ALTERN ATE TESTING OR LABORATORY C ONSULTATION.
[2021-10-04] MEDS ORDERED: ALBUTEROL 2.5 MG/3 ML NEB SOL ONE ×2 (14:12→15:07)
[2021-10-04] MEDS ORDERED: METHYLPREDNISOLONE 125 MG INJ ONE (14:12)
[2021-10-04] MEDS ORDERED: IPRATROPIUM BROM 0.5MG/2.5ML ONE (14:12)
--- NOTE | 2021-10-04 15:03 | EDPHYS ---
Physician Documentation [facility] Name: Fabian Hamm Jr Age: 61 yrs Sex: Male : 1960 Arrival Date: 10/04/2021 Time: 13:43 Bed 3 Private MD: ED Physician Rashel Johnson HPI: 10/04 14:07 This 61 yrs old Male presents to ER via Ambulatory with complaints of kb Breathing Difficulty. 14:07 The patient has shortness of breath at rest, that occurred at home, and the patient has kb a history of asthma. Onset: The symptoms/episode began/occurred today. Duration: The symptoms are continuous. The patient's shortness of breath has no apparent modifying factors. Associated signs and symptoms: Pertinent positives: non-productive cough. Severity of symptoms: At their worst the symptoms were moderate in the emergency department the symptoms are unchanged. The patient has experienced similar episodes in the past, chronically. The patient has not recently seen a physician. Pt reports shortness of breath and wheezing that started after mowing the grass. . Historical: - Allergies: 13:49 NKDA; ap3 - PMHx: 13:49 Diabetes - NIDDM; Hyperlipidemia; Hypertension; restless leg syndrome; ap3 - Immunization history:: Client reports receiving the 2nd dose of the Covid vaccine. - Social history:: Smoking status: Patient denies any tobacco usage or history of. ROS: 14:06 Constitutional: Negative for fever, chills, and weight loss. kb 14:06 Respiratory: Positive for cough, shortness of breath, wheezing. 14:06 All other systems are negative. Exam: 14:05 Constitutional: This is a well developed, well nourished patient who is awake, alert, kb and in no acute distress. Head/Face: Normocephalic, atraumatic. ENT: Moist Mucous membranes Cardiovascular: Regular rate and rhythm with a normal S1 and S2. No gallops, murmurs, or rubs. No pulse deficits. Skin: Warm, dry with normal turgor. Normal color. MS/ Extremity: Pulses equal, no cyanosis. Neurovascular intact. Full, normal range of motion. Neuro: Awake and alert, GCS 15, oriented to person, place, time, and situation. Moves all extremities. Normal gait. Psych: Awake, alert, with orientation to person, place and time. Behavior, mood, and affect are within normal limits. 14:05 Respiratory: mild respiratory distress is noted, Respirations: normal, Breath sounds: wheezing: inspiratory expiratory that is moderate, is heard diffusely. Vital Signs: 13:51 BP 162 / 101; Pulse 92; Resp 22; Temp 97.7; Pulse Ox 95% on R/A; Weight 101.6 kg; ap3 Height 5 ft. 1 in. (154.94 cm); 15:17 BP 163 / 97; Pulse 74; Resp 20; Pulse Ox 100% ; bp 13:51 Body Mass Index 42.32 (101.60 kg, 154.94 cm) ap3 MDM: 13:58 Patient medically screened. [facility] 14:06 Data reviewed: vital signs, nurses notes. Data interpreted: Pulse oximetry: on room air kb is 95 %. Interpretation: normal. 15:03 Counseling: I had a detailed discussion with the patient and/or guardian regarding: the kb historical points, exam findings, and any diagnostic results supporting the discharge/admit diagnosis, the need for outpatient follow up, a family practitioner, to return to the emergency department if symptoms worsen or persist or if there are any questions or concerns that arise at home. Response to treatment: the patient's symptoms have markedly improved after treatment. Administered Medications: 14:15 Drug: SOLU-Medrol (methylPREDNISolone sodium succinate) 125 mg Route: IM; Site: right bp deltoid; 14:32 Follow up: Response: No adverse reaction bp 15:48 Follow up: Response: No adverse reaction kb3 14:15 Drug: DuoNeb (albuterol 2.5 mg, ipratropium 0.5 mg) (3:1) (2.5 mg - 0.5 mg) 3 ml Route: bp Nebulizer; 14:32 Follow up: Response: No adverse reaction bp 15:48 Follow up: Response: No adverse reaction kb3 15:10 Drug: Albuterol 2.5 mg Route: Inhalation; bp 15:48 Follow up: Response: No adverse reaction kb3 Disposition Summary: 10/04/21 15:03 Discharge Ordered Location: Home kb Condition: Stable kb Diagnosis - Unspecified asthma with (acute) exacerbation kb Followup: kb - With: Emergency Department - When: As needed - Reason: Worsening of condition Followup: kb - With: Private Physician - When: 2 - 3 days - Reason: Recheck today's complaints, Continuance of care, Re-evaluation by your physician Discharge Instructions: - Discharge Summary Sheet kb - Asthma, Adult, [id number] kb Forms: - Medication Reconciliation Form kb - Thank You Letter kb - Antibiotic Education kb - Prescription Opioid Use kb Prescriptions: - Prednisone 20 mg Oral Tablet - take 1 tablet by ORAL route once daily for 5 days; 5 tablet; Refills: 0, kb Product Selection Permitted Signatures: Gerri Orellana FNP-C FNP-Rashel Ye MD MD cha Peltier, Brian, RN RN bp Mahogany Fernandes RN RN ap3 Amanda Hinds RN kb3
--- NOTE | 2021-10-04 15:03 | ER ---
Nurse's Notes [facility] Name: Fabian Hamm Jr Age: 61 yrs Sex: Male : 1960 Arrival Date: 10/04/2021 Time: 13:43 Bed 3 Private MD: Diagnosis: Unspecified asthma with (acute) exacerbation Presentation: 10/04 13:48 Chief complaint: Patient states: he was cutting the lawn yesterday, and since then he ap3 feels like he has been having a hard time catching his breath. patient states this has happened in the past, and resolved easily with "breathing thing". Patient's SPO2 is 95% on room air in triage. Coronavirus screen: At this time, the client does not indicate any symptoms associated with coronavirus-19. Ebola Screen: No symptoms or risks identified at this time. Initial Sepsis Screen: Does the patient meet any 2 criteria? No. Patient's initial sepsis screen is negative. Does the patient have a suspected source of infection? No. Patient's initial sepsis screen is negative. Risk Assessment: Do you want to hurt yourself or someone else? Patient reports no desire to harm self or others. Onset of symptoms was October 03, 2021. 13:48 Method Of Arrival: Ambulatory ap3 13:53 Acuity: ELIZABETH 2 ap3 Triage Assessment: 13:50 General: Appears distressed, Behavior is calm, cooperative. Pain: Denies pain. Neuro: ap3 Level of Consciousness is awake, alert, obeys commands. Cardiovascular: Patient's skin is warm and dry. Respiratory: Reports shortness of breath at rest Airway is patent Respiratory effort is even, unlabored, Respiratory pattern is regular, symmetrical, Breath sounds with wheezes bilaterally. Onset: The symptoms/episode began/occurred yesterday, the patient has moderate shortness of breath. Historical: - Allergies: 13:49 NKDA; ap3 - PMHx: 13:49 Diabetes - NIDDM; Hyperlipidemia; Hypertension; restless leg syndrome; ap3 - Immunization history:: Client reports receiving the 2nd dose of the Covid vaccine. - Social history:: Smoking status: Patient denies any tobacco usage or history of. Screenin:50 Fall Risk None identified. bp 13:52 Abuse screen: Denies threats or abuse. Nutritional screening: No deficits noted. ap3 Tuberculosis screening: No symptoms or risk factors identified. Assessment: 13:50 General: SEE TRIAGE NOTE. bp 15:49 Reassessment: PT D/C HOME AMBULATORY. bp Vital Signs: 13:51 BP 162 / 101; Pulse 92; Resp 22; Temp 97.7; Pulse Ox 95% on R/A; Weight 101.6 kg; ap3 Height 5 ft. 1 in. (154.94 cm); 15:17 BP 163 / 97; Pulse 74; Resp 20; Pulse Ox 100% ; bp 13:51 Body Mass Index 42.32 (101.60 kg, 154.94 cm) ap3 ED Course: 13:43 Patient arrived in ED. rg4 13:45 [facility]rell[facility]C [facility]. kb 13:45 Rashel Johnson MD is Attending Physician. kb 13:50 Patient has correct armband on for positive identification. Bed in low position. Call bp light in reach. Side rails up X2. 13:52 Triage completed. ap3 13:52 Arm band placed on right wrist. ap3 13:55 Montez Brown, LANDRY is Primary Nurse. bp 15:17 No provider procedures requiring assistance completed. Patient did not have IV access bp during this emergency room visit. Administered Medications: 14:15 Drug: SOLU-Medrol (methylPREDNISolone sodium succinate) 125 mg Route: IM; Site: right bp deltoid; 14:32 Follow up: Response: No adverse reaction bp 15:48 Follow up: Response: No adverse reaction kb3 14:15 Drug: DuoNeb (albuterol 2.5 mg, ipratropium 0.5 mg) (3:1) (2.5 mg - 0.5 mg) 3 ml Route: bp Nebulizer; 14:32 Follow up: Response: No adverse reaction bp 15:48 Follow up: Response: No adverse reaction kb3 15:10 Drug: Albuterol 2.5 mg Route: Inhalation; bp 15:48 Follow up: Response: No adverse reaction kb3 Medication: 13:50 VIS not applicable for this client. bp Outcome: 15:03 Discharge ordered by . kb 15:49 Discharged to home ambulatory. bp 15:49 Condition: stable 15:49 Discharge instructions given to patient, Instructed on discharge instructions, follow up and referral plans. medication usage, Demonstrated understanding of instructions, follow-up care, medications, Prescriptions given X 1. 15:50 Patient left the ED. bp Signatures: Gerri Orellana, VANEC FIGURE MODEL-Ruth Ann Dorantes rg4 Montez Brown RN RN bp Mahogany Fernandes, LANDRY RN ap3 Amanda Hinds, RN RN kb3 Corrections: (The following items were deleted from the chart) 13:54 13:51 Acuity: ELIZABETH 3 ap3 ap3
[2021-10-04 17:03] VITALS: TEMP 97.7
[2021-10-04 17:05] VITALS: BP 163/97; O2SAT 100
== END 2021-10-04 15:50 | disposition home or self-care (01) ==
LOC: ER 13:42
DX: J45.901 Unspecified asthma with (acute) exacerbation (principal); E11.9 Type 2 diabetes mellitus without complications; I10 Essential (primary) hypertension
CPT/HCPCS: 94640; 96372; 99284; J2930